=== PATIENT | female | born 1940 | race Caucasian/White ===

== ENCOUNTER 2024-02-05 17:48 | Inpatient (IN) ==
[2024-02-05 19:13] LABS: Basophils # (auto) 0.02 K/uL (0.00-0.20); Basophils % (auto) 0.3 %; Eosinophils # (auto) 0.05 K/uL (0.00-0.50); Eosinophils % (auto) 0.9 %; Hematocrit (blood only) 41.6 % (37.0-47.0); Hemoglobin 13.4 g/dl (12.0-16.0); Immature Granulocytes # (auto) 0.01 K/uL (0.01-0.20); Immature Granulocytes % (auto) 0.2 %; Mean Corpuscular Hemoglobin 30.7 pg (25.0-34.0); Mean Corpuscular Hgb Conc 32.2 g/dL (32.0-36.0); Mean Corpuscular Volume 95.4 fL (80.0-100.0); Mean Platelet Volume 8.7 fL (9.4-12.4); Monocytes # (auto) 0.32 K/uL (0.11-0.59); Monocytes % (auto) 5.5 %; Neutrophils # (auto) 4.29 K/uL (1.40-6.50); Neutrophils % (auto) 74.1 %; Platelet Count 286 K/uL (130-400); RDW Coefficient of Variation 12.4 % (11.5-14.5); RDW Standard Deviation 43.7 fL (36.4-46.3); Red Blood Count 4.36 M/uL (4.20-5.40); White Blood Count 5.79 K/ul (4.8-10.8)
[2024-02-05 19:30] LABS: Albumin Globulin Ratio 1.7 (0.9-2); Albumin Level 4.7 gm/dl (3.4-5.0); BUN Creatinine Ratio 22.4 (10-20); Bilirubin,Total 0.5 mg/dl (0.2-1.0); Calcium 9.5 mg/dl (8.6-10.3); Globulin 2.7 gm/dl (2.5-4.0); Total Protein 7.4 gm/dl (6.0-8.3)
[2024-02-05 19:37] LABS: Troponin I High Sensitivity 5.3 pg/ml (0-14)
[2024-02-05 19:40] LABS: INR 0.9 (0.9-1.1); Partial Thromboplastin Time 26 Seconds (21-31); Prothrombin Time 9.8 Seconds (9.0-12.0)
--- NOTE | 2024-02-05 21:23 | Emergency Department Note ---
Impression & Plan Dizziness, Hypertensive crisis, Pulmonary embolism, H/O pneumonectomy, Fall ED Provider Note CHIEF COMPLAINT: Fall HISTORY OF PRESENTING ILLNESS: This 83-year-old female patient presents to the emergency department with her son and [id number] for evaluation after a fall. The patient apparently lost her balance and fell against the wall on her right side a couple days ago. The patient's family states that she has been feeling lightheaded and dizzy recently which they believe caused the fall. She hit her head on the wall as well per family. Denies loss of consciousness. Denies blood thinner use. She has pain in the right upper arm. Denies chest pain or shortness of breath. Denies abdominal pain, nausea, and vomiting. The patient saw her PCP today and her PCP and the patient's family would like imaging performed. REVIEW OF SYSTEMS: See HPI for pertinent positives and pertinent negatives. ALLERGIES: NKDA MEDICATIONS: escitalopram 5 mg QD PAST MEDICAL HISTORY: Anxiety, Right lung removed at 20 y/o due to a cyst PHYSICAL EXAM: VITALS: Vitals are noted on the nurse's note and reviewed by myself. GENERAL: No acute distress, non-diaphoretic. SKIN: The skin was without obvious lacerations or abrasions. Capillary reflex less than 2 seconds. HEAD: Normocephalic. No scalp tenderness or step-offs felt. EARS: Bilateral external auditory canals clear without tragus tenderness. Bilateral tympanic membranes pearly ortiz without erythema or effusion. No mastoid tenderness bilaterally. No hemotympanum. No tyler sign. EYES: Pupils equal round and reactive to light and accommodation. Conjunctivae without injection, sclerae without icterus. Extraocular movements intact. No nystagmus. NOSE: Patent without discharge. No sinus tenderness. No septal hematoma or bleeding. FACE: No facial bone tenderness. Full range of motion of the jaw without tenderness. MOUTH: Mucous membranes moist. Pharynx without erythema or exudate. Uvula midline. Airway patent. Tongue does not deviate. NECK: Supple without nuchal rigidity. Cervical spine is nontender. Full range of motion of the neck without tenderness. HEART: Regular rate and rhythm without murmurs gallops or rubs. LUNGS: Clear to auscultation bilaterally with slight change in breath sounds on the right side compared to the left secondary to her surgery. No retractions or accessory muscle use. CHEST: No chest wall tenderness. ABDOMEN: Positive bowel sounds x 4. Normal tympanic percussion. Soft, nontender, without masses or organomegaly. No guarding or rebound tenderness. MUSCULOSKELETAL: No tenderness of the thoracic or lumbar spine. No tenderness with pelvic rocking. The patient is tender to palpation of the right mid humerus. Full range of motion without tenderness to palpation in all remaining extremities. Peripheral pulses 2+. NEURO: The patient seems slightly confused at baseline as she will repeat the same questions and sometimes repeats the same stories. However, the patient is oriented to person, place, and time. Normal sensation to light and sharp touch. DIFFERENTIAL DIAGNOSIS: Differential diagnosis includes concussion, contusion, fracture, subluxation, dislocation, subdural hematoma, epidural hematoma, intraparenchymal hemorrhage, contusion, ligamentous injury, neurovascular, compartment syndrome, rhabdomyolysis, intra-abdominal injury, splenic rupture, hepatic rupture, rib fractures, cardiac contusion, pneumothorax, hemothorax, cardiac tamponade, intrathoracic injury, neurologic, benign positional vertigo, dehydration, hypovolemia, anemia, tumor, infection, hypoglycemia, electrolyte abnormalities, cardiac sources, intracerebral event, toxicologic, neurologic, as well as other pathologies. ED COURSE AND MEDICAL DECISION MAKING: HISTORY FROM INDEPENDENT HISTORIAN: Additional history obtained for the patient's son and [id number]. MEDICATIONS GIVEN: 500 mL normal saline solution bolus. Hydralazine 5 mg IV. MONITOR: Continuous front desk monitor: Order was placed for continuous front desk monitor. Patient was placed on the front desk monitor and continuous pulse ox. Patient was noted to be in normal sinus rhythm at an initial rate of 94 bpm per my interpretation. EKG: EKG was interpreted by myself as sinus tachycardia at [address] or T wave changes. INTERPRETATION OF LABS: I interpreted the labs with full lab results as below in the lab section of this note. Pertinent lab results discussed in the MDM section below. INTERPRETATION OF IMAGING: Chest x-ray was interpreted by myself as positive for changes consistent with her previous lung surgery. X-rays of the right humerus were interpreted by myself as negative for acute fracture or dislocation. Radiology report is still pending. Additional imaging studies were interpreted by myself and read by radiology as per the imaging section of this note. CT scans of the head and cervical spine without contrast were negative for acute intracranial abnormality, fracture, or subluxation. There is cervical spondylosis with varying degrees of central canal and foraminal stenosis. CTA of the head and neck with IV contrast was negative for acute abnormalities. CT scans of the chest with IV contrast showed a right lower lobe pulmonary embolus with a small right pleural effusion. There is elevation of the right hemidiaphragm with right sided volume loss that appears consistent with a prior pneumonectomy. CT scan of the abdomen pelvis with IV contrast showed no acute findings in the abdomen or pelvis. CHRONIC MEDICAL/SOCIAL CONDITIONS AFFECTING CARE: History of previous pneumonectomy CONSULTATIONS: On-call hospitalist MDM SUMMARY: The patient was seen during a time of extreme volume and extreme acuity. Nursing triage protocols were initiated with IV lock, labs, and/or imaging studies conducted by protocol in the triage area. The patient was examined by myself once they were taken back to an exam room. The patient has had a lot of dizziness recently and her family believe that the dizziness caused her to fall 2 days ago. The patient fell hitting the right side of her body and hitting her head. She is not on blood thinners. The patient does have some mild confusion and repetitive questioning on exam, but the family is unsure if this is baseline or little worse than baseline. The patient saw her PCP today who was concerned about her symptoms and referred her to the ER. The patient declined any medication for pain while in the emergency department. She was given 500 mL normal saline solution bolus. White blood cell count normal at 5.79. Hemoglobin normal at 13.4. Platelet count normal at 286. Coags were normal. CMP without significant abnormalities. Magnesium normal. TSH normal. High-sensitivity troponin normal. Urinalysis normal. Chest x-ray was interpreted by myself as positive for changes consistent with her previous lung surgery. X-rays of the right humerus were interpreted by myself as negative for acute fracture or dislocation. Radiology report is still pending. Additional imaging studies were interpreted by myself and read by radiology as per the imaging section of this note. CT scans of the head and cervical spine without contrast were negative for acute intracranial abnormality, fracture, or subluxation. There is cervical spondylosis with varying degrees of central canal and foraminal stenosis. CTA of the head and neck with IV contrast was negative for acute abnormalities. CT scans of the chest with IV contrast showed a right lower lobe pulmonary embolus with a small right pleural effusion. There is elevation of the right hemidiaphragm with right sided volume loss that appears consistent with a prior pneumonectomy. CT scan of the abdomen pelvis with IV contrast showed no acute findings in the abdomen or pelvis. The patient's blood pressure is elevated in the ER. The patient is not currently on any blood pressure medications. She was given hydralazine 5 mg IV for improvement of her blood pressure. CTA of the chest with IV contrast showed concerns for a right lower lobe PE. The patient thinks she may have had a blood clot at the time of her lung resection, but is not sure. I had a meaningful discussion about this patient with Dr. Clancy who agrees with my assessment and the treatment plan. We deferred decision on anticoagulation management to the admitting team as the patient is not symptomatic at this time other than the dizziness. I spoke with the on-call hospitalist who agreed to admit the patient for further evaluation and treatment. Please refer to their dictation for further details. The patient's care was transferred in stable condition. DIAGNOSIS: Dizziness PE with history of pneumonectomy Fall Hypertension Past Med/Surg History Problem List (Updated 02/06/24 @ 05:36 by Marilyn Baker PA-C) Fall (Acute) H/O pneumonectomy (Acute) Pulmonary embolism (Acute) Dizziness (Acute) Hypertensive crisis (Acute) Social History Smoking Status: Never smoker Second Hand Exposure: No; Do You Dip or Chew Tobacco: No; Tobacco Cessation Education Requested by Patient: No Hx Alcohol Use: No Hx Substance Use: No Preferred Language: Serbian Communication Ability: Effective Lactation Coordinator Required: No Beliefs That Will Affect Care: None Current Living Situation: Alone Other Information That Helps Us Care for You: No Feels Safe at Home: Yes Safety Concerns: Feels Safe At This Time Assistive Devices: None Allergies Allergies Allergy/AdvReac Type Severity Reaction Status Date / Time procaine Allergy Unknown . Verified 02/05/24 23:43 Home Meds Home Medications Medication Instructions Recorded Confirmed escitalopram oxalate 5 mg tablet 5 mg PO DAILY 02/05/24 02/05/24 Results & Data (ED) Vital Signs Vital Signs - 24 hr 02/05/24 18:10 02/05/24 20:23 02/05/24 20:24 Temperature 36.5 C Temperature Source Temporal Artery Scan Pulse Rate 98 H 103 H Pulse Rate [Finger] 103 H Pulse Rate from SpO2 Sensor Respiratory Rate 20 20 Respiratory Effort / Characteristics Non-Labored Spontaneous Respiratory Depth Normal Blood Pressure 168/85 H Blood Pressure [Right Arm] 192/101 H Blood Pressure Mean 112 Blood Pressure Mean [Right Arm] 131 Pulse Oximetry 93 97 Oxygen Delivery Method Room Air Room Air Sepsis Recent Fever Within 48 Hours No Sepsis New/Unexplained Change in Mental Status N/A Sepsis Action Taken by Nursing No Action Required 02/05/24 20:30 02/05/24 21:30 02/05/24 21:36 Temperature Temperature Source Pulse Rate 78 99 H Pulse Rate [Finger] Pulse Rate from SpO2 Sensor 99 H Respiratory Rate 20 20 Respiratory Effort / Characteristics Respiratory Depth Blood Pressure 183/93 H 180/119 H Blood Pressure [Right Arm] Blood Pressure Mean 124 147 Blood Pressure Mean [Right Arm] Pulse Oximetry 97 98 Oxygen Delivery Method Sepsis Recent Fever Within 48 Hours Sepsis New/Unexplained Change in Mental Status Sepsis Action Taken by Nursing 02/05/24 22:21 02/05/24 22:30 02/05/24 22:45 Temperature Temperature Source Pulse Rate 93 H 84 Pulse Rate [Finger] Pulse Rate from SpO2 Sensor 83 Respiratory Rate 18 18 15 Respiratory Effort / Characteristics Respiratory Depth Blood Pressure Blood Pressure [Right Arm] Blood Pressure Mean Blood Pressure Mean [Right Arm] Pulse Oximetry 97 97 Oxygen Delivery Method Sepsis Recent Fever Within 48 Hours Sepsis New/Unexplained Change in Mental Status Sepsis Action Taken by Nursing 02/05/24 22:54 02/05/24 23:00 02/05/24 23:01 Temperature Temperature Source Pulse Rate 84 Pulse Rate [Finger] Pulse Rate from SpO2 Sensor Respiratory Rate 23 24 Respiratory Effort / Characteristics Respiratory Depth Blood Pressure 205/115 H Blood Pressure [Right Arm] Blood Pressure Mean 167 Blood Pressure Mean [Right Arm] Pulse Oximetry 95 97 Oxygen Delivery Method Sepsis Recent Fever Within 48 Hours Sepsis New/Unexplained Change in Mental Status Sepsis Action Taken by Nursing 02/05/24 23:01 02/05/24 23:30 Temperature Temperature Source Pulse Rate 92 H Pulse Rate [Finger] Pulse Rate from SpO2 Sensor Respiratory Rate 18 Respiratory Effort / Characteristics Respiratory Depth Blood Pressure 205/115 H 181/93 H Blood Pressure [Right Arm] Blood Pressure Mean 167 147 Blood Pressure Mean [Right Arm] Pulse Oximetry 96 Oxygen Delivery Method Sepsis Recent Fever Within 48 Hours Sepsis New/Unexplained Change in Mental Status Sepsis Action Taken by Nursing Laboratory Data 02/05/24 18:50 02/05/24 18:50 Lab Results 02/05/24 02/05/24 Range/Units 18:50 22:15 WBC 5.79 (4.8-10.8) K/ul RBC 4.36 (4.20-5.40) M/uL Hgb 13.4 (12.0-16.0) g/dl Hct 41.6 (37.0-47.0) % MCV 95.4 (80.0-100.0) fL MCH 30.7 (25.0-34.0) pg MCHC 32.2 (32.0-36.0) g/dL RDW Std Deviation 43.7 (36.4-46.3) fL RDW Coeff of Oksana 12.4 (11.5-14.5) % Plt Count 286 (130-400) K/uL MPV 8.7 L (9.4-12.4) fL Immature Gran % (Auto) 0.2 % Neut % (Auto) 74.1 % Lymph % (Auto) 19.0 % Bell % (Auto) 5.5 % Eos % (Auto) 0.9 % Baso % (Auto) 0.3 % Neut # (Auto) 4.29 (1.40-6.50) K/uL Lymph # (Auto) 1.10 L (1.20-3.40) K/uL Bell # (Auto) 0.32 (0.11-0.59) K/uL Eos # (Auto) 0.05 (0.00-0.50) K/uL Baso # (Auto) 0.02 (0.00-0.20) K/uL Immature Gran # (Auto) 0.01 (0.01-0.20) K/uL PT 9.8 (9.0-12.0) Seconds INR 0.9 (0.9-1.1) APTT 26 (21-31) Seconds PTT Ratio 1.0 Sodium 136 (136-145) mmol/L Potassium 4.0 (3.5-5.1) mmol/L Chloride 100 (98-107) mmol/L Carbon Dioxide 29 (21-32) mmol/L Anion Gap 7 (3-11) BUN 19 (6-23) mg/dl Creatinine 0.85 (0.6-1.2) mg/dl Est Cr Clr Drug Dosing 36.0 ml/min eGFR 67.94 BUN/Creatinine Ratio 22.4 H (10-20) Glucose 92 (70-99(Fasting)) mg/dl Calcium 9.5 (8.6-10.3) mg/dl Magnesium 2.3 (1.7-2.4) mg/dl Total Bilirubin 0.5 (0.2-1.0) mg/dl AST 25 (13-39) U/L ALT 20 (7-52) U/L Alkaline Phosphatase 65 (34-104) U/L Troponin I High Sens 5.3 (0-14) pg/ml Total Protein 7.4 (6.0-8.3) gm/dl Albumin 4.7 (3.4-5.0) gm/dl Globulin 2.7 (2.5-4.0) gm/dl Albumin/Globulin Ratio 1.7 (0.9-2) TSH 1.803 (0.300-4.500) uIu/ml Urine Color Yellow Urine Appearance Clear (Clear) Urine pH 7.5 (4.5-7.5) Ur Specific Firestone 1.013 (1.000-1.030) Urine Protein Negative (Negative) Urine Glucose (UA) Negative (Negative) Urine Ketones Negative (Negative) Urine Blood Negative (Negative) Urine Nitrite Negative (Negative) Urine Bilirubin Negative (Negative) Urine Urobilinogen Negative (Negative) Ur Leukocyte Esterase Negative (Negative) Administered Medications Hydroxyzine HCl (Hydroxyzine Hcl 10 Mg Tab) 10 mg PO QID PRN PRN Reason: Anxiety Stop: 03/07/24 00:44 Last Admin: 02/06/24 03:02 Dose: 10 mg Documented By: JAMEL Heparin Sodium/Dextrose (Heparin Sodium/Dextrose) 25,000 units in 500 mls @ 11 mls/hr IV .Q24H [facility]; Protocol Stop: 03/07/24 00:59 Last Admin: 02/06/24 01:45 Dose: 550 units/hr, 11 mls/hr Documented By: JAMEL Co-signed By: AUREA Sodium Chloride (Nss) 1,000 mls @ 50 mls/hr IV .Q20H ONE Stop: 02/06/24 20:45 Last Admin: 02/06/24 01:19 Dose: 50 mls/hr Documented By: JAMEL Discontinued Medications Acetaminophen (Acetaminophen 325 Mg Tab) 650 mg PO NOW STA Stop: 10/05/24 00:32 Last Admin: 02/06/24 01:13 Dose: 650 mg Documented By: JAMEL Heparin Sodium/Dextrose (Heparin Iv Adult Wt-Based Low-Dose *No* Initial Bolus Protocol) 1 each IV ONE STA; Protocol Stop: 02/06/24 00:44 Last Admin: 02/06/24 01:19 Dose: Not Given Documented By: JAMEL Heparin Sodium/Dextrose (Heparin 13534 Unit/500 Ml D5w) Confirm Administered Dose 25,000 units IV .STK-MED ONE Stop: 02/06/24 01:12 Last Admin: 02/06/24 02:22 Dose: Not Given Documented By: JAMEL Hydralazine HCl (Hydralazine Hcl 20 Mg/Ml Vial) 5 mg IV NOW ONE Stop: 02/05/24 23:33 Last Admin: 02/06/24 00:00 Dose: 5 mg Documented By: NELL Sodium Chloride (Nss) 500 mls @ 999 mls/hr IV .Q31M ONE Stop: 02/05/24 22:10 Last Infusion: 02/05/24 23:12 Dose: Infused Documented By: Admin: 02/05/24 21:46 Dose: 999 mls/hr Documented By: NELL Ioversol (Optiray 320 125ml) 119 ml IV ONCE ONE Stop: 02/05/24 22:04 Last Admin: 02/05/24 22:03 Dose: 119 ml Documented By: ABEL Lisinopril (Lisinopril 2.5 Mg Tab) 2.5 mg PO NOW STA Stop: 02/05/24 23:54 Last Admin: 02/06/24 00:34 Dose: 2.5 mg Documented By: NELL Imaging Data Radiologist's Impression: Abdomen/Pelvis CT 02/05/24 21:40 Exam(s): CT ABDOMEN + PELVIS With Contrast IV Amt: 118ml opti 320 EXAM: CT Abdomen and Pelvis With Intravenous Contrast CLINICAL HISTORY: Reason for exam: Dizziness, Trauma. TECHNIQUE: Axial computed tomography images of the abdomen and pelvis with intravenous contrast. CTDI is 52.64 mGy and DLP is 1338.64 mGy-cm. Automated exposure control was utilized for the study. A dose lowering technique was utilized adhering to the principles of ALARA. CONTRAST: Patient received 118ml opti 320 of IV contrast COMPARISON: No relevant prior studies available. FINDINGS: Lung bases: Unremarkable. No mass. No consolidation. ABDOMEN: Liver: Innumerable subcentimeter hypodensities within the liver too small for further tissue characterization but likely representing cysts. Gallbladder and bile ducts: Unremarkable. No calcified stones. No ductal dilation. Pancreas: Unremarkable. No mass. No ductal dilation. Spleen: Unremarkable. No splenomegaly. Adrenals: Unremarkable. No mass. Kidneys and ureters: 1.4 cm left upper pole renal hypodensity likely representing cyst. No hydronephrosis. Stomach and bowel: Moderate amount of stool within the rectum. No obstruction. No mucosal thickening. PELVIS: Appendix: No findings to suggest acute appendicitis. Bladder: Unremarkable. No mass. Reproductive: Unremarkable as visualized. ABDOMEN and PELVIS: Intraperitoneal space: Unremarkable. No free air. No significant fluid collection. Bones/joints: Multilevel degenerative changes of the lower thoracic and lumbar spine. No acute fracture. No dislocation. Soft tissues: Unremarkable. Vasculature: Unremarkable. No abdominal aortic aneurysm. Lymph nodes: Unremarkable. No enlarged lymph nodes. IMPRESSION: No acute findings in the abdomen or pelvis. Electronically signed by: Filippo Guerrero MD 02/05/24 23:[address] 02/05/24 21:40 Exam(s): CT C SPINE EXAM: CT Cervical Spine Without Intravenous Contrast CLINICAL HISTORY: Reason for exam: Trauma. TECHNIQUE: Axial computed tomography images of the cervical spine without intravenous contrast. CTDI is 20.41 mGy and DLP is 359.91 mGy-cm. Automated exposure control was utilized for the study. A dose lowering technique was utilized adhering to the principles of ALARA. COMPARISON: None FINDINGS: No fracture or subluxations are noted. The vertebral body heights and alignment are preserved. No prevertebral soft tissue swelling. Note is made of multilevel cervical spondylosis with varying degrees of central canal and foramina stenoses. IMPRESSION: 1. No cervical fractures. 2. Cervical spondylosis with varying degrees of central canal and foramina stenoses. Electronically signed by: Filippo Guerrero MD 02/05/24 22:[address] 02/05/24 21:40 CR Exam(s): CT CHEST With Contrast IV Amt: 119ml optiray 320 EXAM: CT Chest With Intravenous Contrast CLINICAL HISTORY: Reason for exam: Dizziness, SOB, fall. TECHNIQUE: Axial computed tomography images of the chest with intravenous contrast. CTDI is 52.64 mGy and DLP is 1338.68 mGy-cm. Automated exposure control was utilized for the study. A dose lowering technique was utilized adhering to the principles of ALARA. CONTRAST: Patient received 119ml optiray 320 of IV contrast COMPARISON: No relevant prior studies available. FINDINGS: Lungs: Mild groundglass opacity scattered throughout the right lung. Left lung is clear. Right lower lobe pulmonary embolus. Pleural space: Small right pleural effusion. No pneumothorax. Heart: Unremarkable. No cardiomegaly. No significant pericardial effusion. No significant coronary artery calcifications. Bones/joints: Remote right healed fifth rib fracture. Multiple hypodensities within the liver and kidneys likely represent cysts. No dislocation. Soft tissues: Unremarkable. Vasculature: Unremarkable. No thoracic aortic aneurysm. Lymph nodes: Unremarkable. No enlarged lymph nodes. Upper abdomen: Elevation of the right hemidiaphragm. IMPRESSION: Small right pleural effusion. Right lower lobe pulmonary embolus Elevation right hemidiaphragm with right-sided volume loss. Correlate clinically for prior pneumonectomy. Communications: Call Doctor Pulmonary Embolism Electronically signed by: Filippo Guerrero MD 02/05/24 23:[address] 02/05/24 21:40 Exam(s): CT HEAD Without Contrast EXAM: CT Head Without Intravenous Contrast CLINICAL HISTORY: Reason for exam: Trauma. TECHNIQUE: Axial computed tomography images of the head/brain without intravenous contrast. CTDI is 37.72 mGy and DLP is 624.41 mGy-cm. Automated exposure control was utilized for the study. A dose lowering technique was utilized adhering to the principles of ALARA. COMPARISON: No relevant prior studies available. FINDINGS: Brain: Moderate ischemic microangiopathy. Age appropriate cerebral volume loss. No hemorrhage. Ventricles: Unremarkable. No ventriculomegaly. Bones/joints: Unremarkable. No acute fracture. Soft tissues: Subtle subcutaneous soft tissue emphysema involving the right-sided extracalvarial soft tissues. Sinuses: Unremarkable as visualized. No acute sinusitis. Mastoid air cells: Unremarkable as visualized. No mastoid effusion. IMPRESSION: No acute findings in the head/brain. Electronically signed by: Filippo Guerrero MD 02/05/24 22:45 PM Head CTA 02/05/24 21:40 Exam(s): CTA HEAD With Contrast IV Amt: 118ml opti 320 EXAM: CT Angiography Head With Intravenous Contrast CLINICAL HISTORY: Reason for exam: Dizziness, change in mental status. TECHNIQUE: Axial computed tomographic angiography images of the head with intravenous contrast. CTDI is 52.64 mGy and DLP is 1338.68 mGy-cm. Automated exposure control was utilized for the study. A dose lowering technique was utilized adhering to the principles of ALARA. MIP reconstructed images were created and reviewed. CONTRAST: Patient received 118ml opti 320 of IV contrast COMPARISON: No relevant prior studies available. FINDINGS: Right internal carotid artery: No acute findings. Intracranial segment is patent with no significant stenosis. No aneurysm. Right anterior cerebral artery: Unremarkable. No occlusion or significant stenosis. No aneurysm. Right middle cerebral artery: Unremarkable. No occlusion or significant stenosis. No aneurysm. Right posterior cerebral artery: Unremarkable. No occlusion or significant stenosis. No aneurysm. Right vertebral artery: Unremarkable as visualized. Left internal carotid artery: No acute findings. Intracranial segment is patent with no significant stenosis. No aneurysm. Left anterior cerebral artery: Unremarkable. No occlusion or significant stenosis. No aneurysm. Left middle cerebral artery: Unremarkable. No occlusion or significant stenosis. No aneurysm. Left posterior cerebral artery: Unremarkable. No occlusion or significant stenosis. No aneurysm. Left vertebral artery: Unremarkable as visualized. Basilar artery: Unremarkable. No occlusion or significant stenosis. No aneurysm. IMPRESSION: Normal head CTA. Electronically signed by: Filippo Guerrero MD 02/05/24 23:30 PM Neck CTA 02/05/24 21:40 Exam(s): CTA NECK With Contrast IV Amt: 118 cc opti 320 EXAM: CT Angiography Neck With Intravenous Contrast CLINICAL HISTORY: Reason for exam: Dizziness, change in mental status. TECHNIQUE: Routine carotid CT angiography protocol was performed with intravenous contrast. NASCET criteria using the distal ICAs for comparison were used for evaluation of stenoses. CTDI is 52.64 mGy and DLP is 1338.68 mGy-cm. Automated exposure control was utilized for the study. A dose lowering technique was utilized adhering to the principles of ALARA. MIP reconstructed images were created and reviewed. CONTRAST: Patient received 118 cc opti 320 of IV contrast COMPARISON: None. FINDINGS: VASCULATURE: Right common carotid artery: Unremarkable. No occlusion or significant stenosis. No dissection. Right internal carotid artery: Unremarkable. Extracranial segment is patent with no occlusion or significant stenosis. No dissection. Right external carotid artery: Unremarkable. No occlusion. Right vertebral artery: Unremarkable. No occlusion or significant stenosis. No dissection. Left common carotid artery: Unremarkable. No occlusion or significant stenosis. No dissection. Left internal carotid artery: Unremarkable. Extracranial segment is patent with no occlusion or significant stenosis. No dissection. Left external carotid artery: Unremarkable. No occlusion. Left vertebral artery: Unremarkable. No occlusion or significant stenosis. No dissection. NECK: Bones/joints: Unremarkable. No acute fracture. Soft tissues: Unremarkable. Lung apices: Clear. CAROTID STENOSIS REFERENCE USING NASCET CRITERIA: % ICA stenosis = (1 - narrowest ICA diameter/diameter of distal cervical ICA) x 100. Mild - <50% stenosis. Moderate - 50-69% stenosis. Severe - 70-94% stenosis. Near occlusion - 95-99% stenosis. Occluded - 100% stenosis. IMPRESSION: Negative CTA neck. Electronically signed by: Filippo Guerrero MD 02/05/24 22:54 PM Discharge Plan Visit Data Chief Complaint: Referred by Doctor Stated Complaint: REQUEST FOR SCANS AND BLOODWORK ED Provider: Pauly Clancy ED Midlevel Provider: Marilyn Baker. Discharge Problem: Dizziness, Hypertensive crisis, Pulmonary embolism, H/O pneumonectomy, Fall Patient Disposition: Admitted As Inpatient Condition: Good Discharge Instructions Interventions: ED Discharge Assessment Last Done: 02/06/24 00:36 Discharge Problem: Pulmonary embolism Qualifiers: Pulmonary embolism type: unspecified Chronicity: unspecified Acute cor pulmonale presence: unspecified Qualified Code(s): I26.99 - Other pulmonary embolism without acute cor pulmonale Fall Qualifiers: Encounter type: initial encounter Qualified Code(s): W19.XXXA - Unspecified fall, initial encounter
[2024-02-05] MEDS: SODIUM CHLORIDE 0.9% 500 ML IV ONE (21:46)
[2024-02-05] MEDS: OPTIRAY 320 125ml IV ONE (22:03)
[2024-02-05 22:20] LABS: Magnesium 2.3 mg/dl (1.7-2.4)
--- NOTE | 2024-02-05 22:37 | CT Scan Report ---
Exam(s): CT C SPINE EXAM: CT Cervical Spine Without Intravenous Contrast CLINICAL HISTORY: Reason for exam: Trauma. TECHNIQUE: Axial computed tomography images of the cervical spine without intravenous contrast. CTDI is 20.41 mGy and DLP is 359.91 mGy-cm. Automated exposure control was utilized for the study. A dose lowering technique was utilized adhering to the principles of ALARA. COMPARISON: None FINDINGS: No fracture or subluxations are noted. The vertebral body heights and alignment are preserved. No prevertebral soft tissue swelling. Note is made of multilevel cervical spondylosis with varying degrees of central canal and foramina stenoses. IMPRESSION: 1. No cervical fractures. 2. Cervical spondylosis with varying degrees of central canal and foramina stenoses. Electronically signed by: Filippo Guerrero MD 02/05/24 22:36 PM
[2024-02-05 22:42] LABS: Appearance Urine Clear (Clear); Bilirubin Urine Negative (Negative); Blood Urine Negative (Negative); Color Urine Yellow; Glucose Urine UA Negative (Negative); Ketones Urine Negative (Negative); Leukocyte Esterase Urine Negative (Negative); Nitrite Urine Negative (Negative); Protein Urine Negative (Negative); Specific Gravity Urine 1.013 (1.000-1.030); Urobilinogen Urine Negative (Negative); pH Urine 7.5 (4.5-7.5)
--- NOTE | 2024-02-05 22:46 | CT Scan Report ---
Exam(s): CT HEAD Without Contrast EXAM: CT Head Without Intravenous Contrast CLINICAL HISTORY: Reason for exam: Trauma. TECHNIQUE: Axial computed tomography images of the head/brain without intravenous contrast. CTDI is 37.72 mGy and DLP is 624.41 mGy-cm. Automated exposure control was utilized for the study. A dose lowering technique was utilized adhering to the principles of ALARA. COMPARISON: No relevant prior studies available. FINDINGS: Brain: Moderate ischemic microangiopathy. Age appropriate cerebral volume loss. No hemorrhage. Ventricles: Unremarkable. No ventriculomegaly. Bones/joints: Unremarkable. No acute fracture. Soft tissues: Subtle subcutaneous soft tissue emphysema involving the right-sided extracalvarial soft tissues. Sinuses: Unremarkable as visualized. No acute sinusitis. Mastoid air cells: Unremarkable as visualized. No mastoid effusion. IMPRESSION: No acute findings in the head/brain. Electronically signed by: Filippo Guerrero MD 02/05/24 22:45 PM
--- NOTE | 2024-02-05 22:54 | CT Scan Report ---
Exam(s): CTA NECK With Contrast IV Amt: 118 cc opti 320 EXAM: CT Angiography Neck With Intravenous Contrast CLINICAL HISTORY: Reason for exam: Dizziness, change in mental status. TECHNIQUE: Routine carotid CT angiography protocol was performed with intravenous contrast. NASCET criteria using the distal ICAs for comparison were used for evaluation of stenoses. CTDI is 52.64 mGy and DLP is 1338.68 mGy-cm. Automated exposure control was utilized for the study. A dose lowering technique was utilized adhering to the principles of ALARA. MIP reconstructed images were created and reviewed. CONTRAST: Patient received 118 cc opti 320 of IV contrast COMPARISON: None. FINDINGS: VASCULATURE: Right common carotid artery: Unremarkable. No occlusion or significant stenosis. No dissection. Right internal carotid artery: Unremarkable. Extracranial segment is patent with no occlusion or significant stenosis. No dissection. Right external carotid artery: Unremarkable. No occlusion. Right vertebral artery: Unremarkable. No occlusion or significant stenosis. No dissection. Left common carotid artery: Unremarkable. No occlusion or significant stenosis. No dissection. Left internal carotid artery: Unremarkable. Extracranial segment is patent with no occlusion or significant stenosis. No dissection. Left external carotid artery: Unremarkable. No occlusion. Left vertebral artery: Unremarkable. No occlusion or significant stenosis. No dissection. NECK: Bones/joints: Unremarkable. No acute fracture. Soft tissues: Unremarkable. Lung apices: Clear. CAROTID STENOSIS REFERENCE USING NASCET CRITERIA: % ICA stenosis = (1 - narrowest ICA diameter/diameter of distal cervical ICA) x 100. Mild - <50% stenosis. Moderate - 50-69% stenosis. Severe - 70-94% stenosis. Near occlusion - 95-99% stenosis. Occluded - 100% stenosis. IMPRESSION: Negative CTA neck. Electronically signed by: Filippo Guerrero MD 02/05/24 22:54 PM
--- NOTE | 2024-02-05 23:21 | CT Scan Report ---
Exam(s): CT CHEST With Contrast IV Amt: 119ml optiray 320 EXAM: CT Chest With Intravenous Contrast CLINICAL HISTORY: Reason for exam: Dizziness, SOB, fall. TECHNIQUE: Axial computed tomography images of the chest with intravenous contrast. CTDI is 52.64 mGy and DLP is 1338.68 mGy-cm. Automated exposure control was utilized for the study. A dose lowering technique was utilized adhering to the principles of ALARA. CONTRAST: Patient received 119ml optiray 320 of IV contrast COMPARISON: No relevant prior studies available. FINDINGS: Lungs: Mild groundglass opacity scattered throughout the right lung. Left lung is clear. Right lower lobe pulmonary embolus. Pleural space: Small right pleural effusion. No pneumothorax. Heart: Unremarkable. No cardiomegaly. No significant pericardial effusion. No significant coronary artery calcifications. Bones/joints: Remote right healed fifth rib fracture. Multiple hypodensities within the liver and kidneys likely represent cysts. No dislocation. Soft tissues: Unremarkable. Vasculature: Unremarkable. No thoracic aortic aneurysm. Lymph nodes: Unremarkable. No enlarged lymph nodes. Upper abdomen: Elevation of the right hemidiaphragm. IMPRESSION: Small right pleural effusion. Right lower lobe pulmonary embolus Elevation right hemidiaphragm with right-sided volume loss. Correlate clinically for prior pneumonectomy. Communications: Call Doctor Pulmonary Embolism Electronically signed by: Filippo Guerrero MD 02/05/24 23:20 PM
--- NOTE | 2024-02-05 23:23 | CT Scan Report ---
Exam(s): CT ABDOMEN + PELVIS With Contrast IV Amt: 118ml opti 320 EXAM: CT Abdomen and Pelvis With Intravenous Contrast CLINICAL HISTORY: Reason for exam: Dizziness, Trauma. TECHNIQUE: Axial computed tomography images of the abdomen and pelvis with intravenous contrast. CTDI is 52.64 mGy and DLP is 1338.64 mGy-cm. Automated exposure control was utilized for the study. A dose lowering technique was utilized adhering to the principles of ALARA. CONTRAST: Patient received 118ml opti 320 of IV contrast COMPARISON: No relevant prior studies available. FINDINGS: Lung bases: Unremarkable. No mass. No consolidation. ABDOMEN: Liver: Innumerable subcentimeter hypodensities within the liver too small for further tissue characterization but likely representing cysts. Gallbladder and bile ducts: Unremarkable. No calcified stones. No ductal dilation. Pancreas: Unremarkable. No mass. No ductal dilation. Spleen: Unremarkable. No splenomegaly. Adrenals: Unremarkable. No mass. Kidneys and ureters: 1.4 cm left upper pole renal hypodensity likely representing cyst. No hydronephrosis. Stomach and bowel: Moderate amount of stool within the rectum. No obstruction. No mucosal thickening. PELVIS: Appendix: No findings to suggest acute appendicitis. Bladder: Unremarkable. No mass. Reproductive: Unremarkable as visualized. ABDOMEN and PELVIS: Intraperitoneal space: Unremarkable. No free air. No significant fluid collection. Bones/joints: Multilevel degenerative changes of the lower thoracic and lumbar spine. No acute fracture. No dislocation. Soft tissues: Unremarkable. Vasculature: Unremarkable. No abdominal aortic aneurysm. Lymph nodes: Unremarkable. No enlarged lymph nodes. IMPRESSION: No acute findings in the abdomen or pelvis. Electronically signed by: Filippo Guerrero MD 02/05/24 23:22 PM
--- NOTE | 2024-02-05 23:31 | CT Scan Report ---
Exam(s): CTA HEAD With Contrast IV Amt: 118ml opti 320 EXAM: CT Angiography Head With Intravenous Contrast CLINICAL HISTORY: Reason for exam: Dizziness, change in mental status. TECHNIQUE: Axial computed tomographic angiography images of the head with intravenous contrast. CTDI is 52.64 mGy and DLP is 1338.68 mGy-cm. Automated exposure control was utilized for the study. A dose lowering technique was utilized adhering to the principles of ALARA. MIP reconstructed images were created and reviewed. CONTRAST: Patient received 118ml opti 320 of IV contrast COMPARISON: No relevant prior studies available. FINDINGS: Right internal carotid artery: No acute findings. Intracranial segment is patent with no significant stenosis. No aneurysm. Right anterior cerebral artery: Unremarkable. No occlusion or significant stenosis. No aneurysm. Right middle cerebral artery: Unremarkable. No occlusion or significant stenosis. No aneurysm. Right posterior cerebral artery: Unremarkable. No occlusion or significant stenosis. No aneurysm. Right vertebral artery: Unremarkable as visualized. Left internal carotid artery: No acute findings. Intracranial segment is patent with no significant stenosis. No aneurysm. Left anterior cerebral artery: Unremarkable. No occlusion or significant stenosis. No aneurysm. Left middle cerebral artery: Unremarkable. No occlusion or significant stenosis. No aneurysm. Left posterior cerebral artery: Unremarkable. No occlusion or significant stenosis. No aneurysm. Left vertebral artery: Unremarkable as visualized. Basilar artery: Unremarkable. No occlusion or significant stenosis. No aneurysm. IMPRESSION: Normal head CTA. Electronically signed by: Filippo Guerrero MD 02/05/24 23:30 PM
--- NOTE | 2024-02-05 23:54 | History & Physical Report ---
Date of Service February 05, 2024 Assessment & Plan (1) Hypertensive crisis: Plan: History of medication noncompliance Patient stopped most of her medications as per outpatient PCP note from September 2023. History beta-consuelo Rx up until 2022 Acute PE Incidental finding on CT ? Recurrent episode Patient gives history of blood clot finding from lung surgery 60 years ago. Patient's son disputes history. Rule out hypercoagulability Rule out LE clot as source hyperlipidemia, not on statin Rx anxiety/borderline personality disorder, patient anxious during exam cognitive impairment, not new as per son. Admit to PCU Initiate lisinopril Hypercoag workup LE venous Dopplers rule out DVT Low-dose IV heparin for now given recent head trauma Repeat CT head [address] PT OT eval DVT prophylaxis. IV heparin Full code Patient's son requests for updates from providers. Mr. Vick Barajas, contact #[phone]. Text document was generated using [employer] voice recognition software. It may contain grammatical or spelling errors. Kindly contact undersigned for clarification of any documentation item in question. History of Present Illness Chief Complaint: Dizziness, fall Primary Care Provider: Molly Castelan PA-C History obtained from patient, family, and records. Medical history significant for hypertension, hyperlipidemia, GERD, anxiety/mood disorder, borderline personality disorder Patient not feeling well the last few days. Dizziness described as lightheadedness. Patient stumbled from imbalance the other day causing her to hit her head against a door. Mild right-sided chest pain without SOB symptoms. Patient felt like she was going to pass out. Denies cough symptoms. No leg swelling. Patient somewhat confused as per outpatient provider notes. Patient directed to ER for evaluation. Highest SBP of 200s documented at the ER. IV hydralazine administered at the ER. 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 Verified 02/05/24 23:43 Home Medications Medication Instructions Recorded Confirmed Type escitalopram oxalate 5 mg tablet 5 mg PO DAILY 02/05/24 02/05/24 History Past Med/Surg History Problem List (Updated 02/06/24 @ 02:02 by Pradeep Barbosa MD) Hypertensive crisis Social History Smoking Status: Never smoker Preferred Language: Filipino Feels Safe at Home: Yes Review of Systems Review of Systems: As per HPI, all other systems reviewed and negative Physical Exam Physical Exam: GENERAL: Oriented to year, pleasant, slightly anxious, looks younger than stated age, no respiratory distress SKIN: Normal color, warm HEENT: [place] palpebral conjunctivae, no ptosis, dry buccal mucosa NECK : Supple, no tenderness CHEST : CTA, no tenderness HEART : RRR, no obvious murmurs ABDOMEN: no distention, nontender EXTREMITIES : No LE swelling/tenderness, no other conspicuous deformities noted NEUROLOGIC : Oriented to year, no facial asymmetry, gait and stance not assessed Results & Data Results & Data Vital Signs (Past 12 Hours) Vital Signs Temp Pulse Pulse Resp BP BP Pulse Ox 02/05/24 23:01 205/115 H 02/05/24 23:01 84 205/115 H 02/05/24 23:00 24 97 02/05/24 22:54 23 95 02/05/24 22:45 15 97 02/05/24 22:30 84 18 97 02/05/24 22:21 93 H 18 02/05/24 21:36 99 H 20 98 02/05/24 21:30 180/119 H 02/05/24 20:30 78 20 183/93 H 97 02/05/24 20:24 103 H 02/05/24 20:23 103 H 20 192/101 H 97 02/05/24 18:10 36.5 C 98 H 20 168/85 H 93 O2 Del Method 02/05/24 23:01 02/05/24 23:01 02/05/24 23:00 02/05/24 22:54 02/05/24 22:45 02/05/24 22:30 02/05/24 22:21 02/05/24 21:36 02/05/24 21:30 02/05/24 20:30 02/05/24 20:24 02/05/24 20:23 Room Air 02/05/24 18:10 Room Air Laboratory Results Laboratory Results WBC 5.79 K/ul (4.8-10.8) 02/05/24 18:50 RBC 4.36 M/uL (4.20-5.40) 02/05/24 18:50 Hgb 13.4 g/dl (12.0-16.0) 02/05/24 18:50 Hct 41.6 % (37.0-47.0) 02/05/24 18:50 MCV 95.4 fL (80.0-100.0) 02/05/24 18:50 MCH 30.7 pg (25.0-34.0) 02/05/24 18:50 MCHC 32.2 g/dL (32.0-36.0) 02/05/24 18:50 RDW Std Deviation 43.7 fL (36.4-46.3) 02/05/24 18:50 RDW Coeff of Oksana 12.4 % (11.5-14.5) 02/05/24 18:50 Plt Count 286 K/uL (130-400) 02/05/24 18:50 MPV 8.7 fL (9.4-12.4) L 02/05/24 18:50 Immature Gran % (Auto) 0.2 % 02/05/24 18:50 Neut % (Auto) 74.1 % 02/05/24 18:50 Lymph % (Auto) 19.0 % 02/05/24 18:50 [place] % (Auto) 5.5 % 02/05/24 18:50 Eos % (Auto) 0.9 % 02/05/24 18:50 Baso % (Auto) 0.3 % 02/05/24 18:50 Neut # (Auto) 4.29 K/uL (1.40-6.50) 02/05/24 18:50 Lymph # (Auto) 1.10 K/uL (1.20-3.40) L 02/05/24 18:50 [place] # (Auto) 0.32 K/uL (0.11-0.59) 02/05/24 18:50 Eos # (Auto) 0.05 K/uL (0.00-0.50) 02/05/24 18:50 Baso # (Auto) 0.02 K/uL (0.00-0.20) 02/05/24 18:50 Immature Gran # (Auto) 0.01 K/uL (0.01-0.20) 02/05/24 18:50 PT 9.8 Seconds (9.0-12.0) 02/05/24 18:50 INR 0.9 (0.9-1.1) 02/05/24 18:50 APTT 26 Seconds (21-31) 02/05/24 18:50 PTT Ratio 1.0 02/05/24 18:50 Sodium 136 mmol/L (136-145) 02/05/24 18:50 Potassium 4.0 mmol/L (3.5-5.1) 02/05/24 18:50 Chloride 100 mmol/L (98-107) 02/05/24 18:50 Carbon Dioxide 29 mmol/L (21-32) 02/05/24 18:50 Anion Gap 7 (3-11) 02/05/24 18:50 BUN 19 mg/dl (6-23) 02/05/24 18:50 Creatinine 0.85 mg/dl (0.6-1.2) 02/05/24 18:50 Est Cr Clr Drug Dosing 36.0 ml/min 02/05/24 18:50 eGFR 67.94 02/05/24 18:50 BUN/Creatinine Ratio 22.4 (10-20) H 02/05/24 18:50 Glucose 92 mg/dl (70-99(Fasting)) 02/05/24 18:50 Calcium 9.5 mg/dl (8.6-10.3) 02/05/24 18:50 Magnesium 2.3 mg/dl (1.7-2.4) 02/05/24 18:50 Total Bilirubin 0.5 mg/dl (0.2-1.0) 02/05/24 18:50 AST 25 U/L (13-39) 02/05/24 18:50 ALT 20 U/L (7-52) 02/05/24 18:50 Alkaline Phosphatase 65 U/L (34-104) 02/05/24 18:50 Troponin I High Sens 5.3 pg/ml (0-14) 02/05/24 18:50 Total Protein 7.4 gm/dl (6.0-8.3) 02/05/24 18:50 Albumin 4.7 gm/dl (3.4-5.0) 02/05/24 18:50 Globulin 2.7 gm/dl (2.5-4.0) 02/05/24 18:50 Albumin/Globulin Ratio 1.7 (0.9-2) 02/05/24 18:50 Urine Color Yellow 02/05/24 22:15 Urine Appearance Clear (Clear) 02/05/24 22:15 Urine pH 7.5 (4.5-7.5) 02/05/24 22:15 Ur Specific [place] 1.013 (1.000-1.030) 02/05/24 22:15 Urine Protein Negative (Negative) 02/05/24 22:15 Urine Glucose (UA) Negative (Negative) 02/05/24 22:15 Urine Ketones Negative (Negative) 02/05/24 22:15 Urine Blood Negative (Negative) 02/05/24 22:15 Urine Nitrite Negative (Negative) 02/05/24 22:15 Urine Bilirubin Negative (Negative) 02/05/24 22:15 Urine Urobilinogen Negative (Negative) 02/05/24 22:15 Ur Leukocyte Esterase Negative (Negative) 02/05/24 22:15 Impressions Abdomen/Pelvis CT 02/05/24 21:40 Exam(s): CT ABDOMEN + PELVIS With Contrast IV Amt: 118ml opti 320 EXAM: CT Abdomen and Pelvis With Intravenous Contrast CLINICAL HISTORY: Reason for exam: Dizziness, Trauma. TECHNIQUE: Axial computed tomography images of the abdomen and pelvis with intravenous contrast. CTDI is 52.64 mGy and DLP is 1338.64 mGy-cm. Automated exposure control was utilized for the study. A dose lowering technique was utilized adhering to the principles of ALARA. CONTRAST: Patient received 118ml opti 320 of IV contrast COMPARISON: No relevant prior studies available. FINDINGS: Lung bases: Unremarkable. No mass. No consolidation. ABDOMEN: Liver: Innumerable subcentimeter hypodensities within the liver too small for further tissue characterization but likely representing cysts. Gallbladder and bile ducts: Unremarkable. No calcified stones. No ductal dilation. Pancreas: Unremarkable. No mass. No ductal dilation. Spleen: Unremarkable. No splenomegaly. Adrenals: Unremarkable. No mass. Kidneys and ureters: 1.4 cm left upper pole renal hypodensity likely representing cyst. No hydronephrosis. Stomach and bowel: Moderate amount of stool within the rectum. No obstruction. No mucosal thickening. PELVIS: Appendix: No findings to suggest acute appendicitis. Bladder: Unremarkable. No mass. Reproductive: Unremarkable as visualized. ABDOMEN and PELVIS: Intraperitoneal space: Unremarkable. No free air. No significant fluid collection. Bones/joints: Multilevel degenerative changes of the lower thoracic and lumbar spine. No acute fracture. No dislocation. Soft tissues: Unremarkable. Vasculature: Unremarkable. No abdominal aortic aneurysm. Lymph nodes: Unremarkable. No enlarged lymph nodes. IMPRESSION: No acute findings in the abdomen or pelvis. Electronically signed by: Filippo Guerrero MD 02/05/24 23:[address] 02/05/24 21:40 Exam(s): CT C SPINE EXAM: CT Cervical Spine Without Intravenous Contrast CLINICAL HISTORY: Reason for exam: Trauma. TECHNIQUE: Axial computed tomography images of the cervical spine without intravenous contrast. CTDI is 20.41 mGy and DLP is 359.91 mGy-cm. Automated exposure control was utilized for the study. A dose lowering technique was utilized adhering to the principles of ALARA. COMPARISON: None FINDINGS: No fracture or subluxations are noted. The vertebral body heights and alignment are preserved. No prevertebral soft tissue swelling. Note is made of multilevel cervical spondylosis with varying degrees of central canal and foramina stenoses. IMPRESSION: 1. No cervical fractures. 2. Cervical spondylosis with varying degrees of central canal and foramina stenoses. Electronically signed by: Filippo Guerrero MD 02/05/24 22:[address] 02/05/24 21:40 CR Exam(s): CT CHEST With Contrast IV Amt: 119ml optiray 320 EXAM: CT Chest With Intravenous Contrast CLINICAL HISTORY: Reason for exam: Dizziness, SOB, fall. TECHNIQUE: Axial computed tomography images of the chest with intravenous contrast. CTDI is 52.64 mGy and DLP is 1338.68 mGy-cm. Automated exposure control was utilized for the study. A dose lowering technique was utilized adhering to the principles of ALARA. CONTRAST: Patient received 119ml optiray 320 of IV contrast COMPARISON: No relevant prior studies available. FINDINGS: Lungs: Mild groundglass opacity scattered throughout the right lung. Left lung is clear. Right lower lobe pulmonary embolus. Pleural space: Small right pleural effusion. No pneumothorax. Heart: Unremarkable. No cardiomegaly. No significant pericardial effusion. No significant coronary artery calcifications. Bones/joints: Remote right healed fifth rib fracture. Multiple hypodensities within the liver and kidneys likely represent cysts. No dislocation. Soft tissues: Unremarkable. Vasculature: Unremarkable. No thoracic aortic aneurysm. Lymph nodes: Unremarkable. No enlarged lymph nodes. Upper abdomen: Elevation of the right hemidiaphragm. IMPRESSION: Small right pleural effusion. Right lower lobe pulmonary embolus Elevation right hemidiaphragm with right-sided volume loss. Correlate clinically for prior pneumonectomy. Communications: Call Doctor Pulmonary Embolism Electronically signed by: Filippo Guerrero MD 02/05/24 23:[address] 02/05/24 21:40 Exam(s): CT HEAD Without Contrast EXAM: CT Head Without Intravenous Contrast CLINICAL HISTORY: Reason for exam: Trauma. TECHNIQUE: Axial computed tomography images of the head/brain without intravenous contrast. CTDI is 37.72 mGy and DLP is 624.41 mGy-cm. Automated exposure control was utilized for the study. A dose lowering technique was utilized adhering to the principles of ALARA. COMPARISON: No relevant prior studies available. FINDINGS: Brain: Moderate ischemic microangiopathy. Age appropriate cerebral volume loss. No hemorrhage. Ventricles: Unremarkable. No ventriculomegaly. Bones/joints: Unremarkable. No acute fracture. Soft tissues: Subtle subcutaneous soft tissue emphysema involving the right-sided extracalvarial soft tissues. Sinuses: Unremarkable as visualized. No acute sinusitis. Mastoid air cells: Unremarkable as visualized. No mastoid effusion. IMPRESSION: No acute findings in the head/brain. Electronically signed by: Filippo Guerrero MD 02/05/24 22:45 PM Head CTA 02/05/24 21:40 Exam(s): CTA HEAD With Contrast IV Amt: 118ml opti 320 EXAM: CT Angiography Head With Intravenous Contrast CLINICAL HISTORY: Reason for exam: Dizziness, change in mental status. TECHNIQUE: Axial computed tomographic angiography images of the head with intravenous contrast. CTDI is 52.64 mGy and DLP is 1338.68 mGy-cm. Automated exposure control was utilized for the study. A dose lowering technique was utilized adhering to the principles of ALARA. MIP reconstructed images were created and reviewed. CONTRAST: Patient received 118ml opti 320 of IV contrast COMPARISON: No relevant prior studies available. FINDINGS: Right internal carotid artery: No acute findings. Intracranial segment is patent with no significant stenosis. No aneurysm. Right anterior cerebral artery: Unremarkable. No occlusion or significant stenosis. No aneurysm. Right middle cerebral artery: Unremarkable. No occlusion or significant stenosis. No aneurysm. Right posterior cerebral artery: Unremarkable. No occlusion or significant stenosis. No aneurysm. Right vertebral artery: Unremarkable as visualized. Left internal carotid artery: No acute findings. Intracranial segment is patent with no significant stenosis. No aneurysm. Left anterior cerebral artery: Unremarkable. No occlusion or significant stenosis. No aneurysm. Left middle cerebral artery: Unremarkable. No occlusion or significant stenosis. No aneurysm. Left posterior cerebral artery: Unremarkable. No occlusion or significant stenosis. No aneurysm. Left vertebral artery: Unremarkable as visualized. Basilar artery: Unremarkable. No occlusion or significant stenosis. No aneurysm. IMPRESSION: Normal head CTA. Electronically signed by: Filippo Guerrero MD 02/05/24 23:30 PM Neck CTA 02/05/24 21:40 Exam(s): CTA NECK With Contrast IV Amt: 118 cc opti 320 EXAM: CT Angiography Neck With Intravenous Contrast CLINICAL HISTORY: Reason for exam: Dizziness, change in mental status. TECHNIQUE: Routine carotid CT angiography protocol was performed with intravenous contrast. NASCET criteria using the distal ICAs for comparison were used for evaluation of stenoses. CTDI is 52.64 mGy and DLP is 1338.68 mGy-cm. Automated exposure control was utilized for the study. A dose lowering technique was utilized adhering to the principles of ALARA. MIP reconstructed images were created and reviewed. CONTRAST: Patient received 118 cc opti 320 of IV contrast COMPARISON: None. FINDINGS: VASCULATURE: Right common carotid artery: Unremarkable. No occlusion or significant stenosis. No dissection. Right internal carotid artery: Unremarkable. Extracranial segment is patent with no occlusion or significant stenosis. No dissection. Right external carotid artery: Unremarkable. No occlusion. Right vertebral artery: Unremarkable. No occlusion or significant stenosis. No dissection. Left common carotid artery: Unremarkable. No occlusion or significant stenosis. No dissection. Left internal carotid artery: Unremarkable. Extracranial segment is patent with no occlusion or significant stenosis. No dissection. Left external carotid artery: Unremarkable. No occlusion. Left vertebral artery: Unremarkable. No occlusion or significant stenosis. No dissection. NECK: Bones/joints: Unremarkable. No acute fracture. Soft tissues: Unremarkable. Lung apices: Clear. CAROTID STENOSIS REFERENCE USING NASCET CRITERIA: % ICA stenosis = (1 - narrowest ICA diameter/diameter of distal cervical ICA) x 100. Mild - <50% stenosis. Moderate - 50-69% stenosis. Severe - 70-94% stenosis. Near occlusion - 95-99% stenosis. Occluded - 100% stenosis. IMPRESSION: Negative CTA neck. Electronically signed by: Filippo Guerrero MD 02/05/24 22:54 PM Diagnostic Findings EKG as per my interpretation : Rate 105, sinus tachycardia, normal axis, T wave abnormalities inferior leads
[2024-02-06] MEDS: hydrALAZINE HCL 20 MG/ML VIAL IV ONE
[2024-02-06] MEDS: lisinopril 2.5 MG TAB PO STA (00:34)
[2024-02-06 00:36] LABS: Thyroid Stimulating Hormone 1.803 uIu/ml (0.300-4.500)
[2024-02-06] MEDS ORDERED: ACETAMINOPHEN 325 MG TAB PO PRN (00:44)
[2024-02-06] MEDS ORDERED: PROMETHAZINE 6.25 MG/50.25 ML BAG IV PRN (00:44)
[2024-02-06] MEDS ORDERED: NITROGLYCERIN SL 0.4 MG/TAB TAB SL PRN (01:08)
[2024-02-06] MEDS: ACETAMINOPHEN 325 MG TAB PO STA (01:13)
[2024-02-06] MEDS: Heparin IV Adult Wt-Based Low-Dose *NO* INITIAL Bolus Protocol IV STA (01:19)
[2024-02-06] MEDS: SODIUM CHLORIDE 0.9% 1,000 ML IV ONE (01:19)
[2024-02-06] MEDS: HEPARIN SODIUM/DEXTROSE 25,000 UNITS/500 ML BAG IV SCH (01:45)
[2024-02-06] MEDS: HEPARIN 25000 UNIT/500 ML D5W IV ONE (02:22)
[2024-02-06] MEDS: hydrOXYzine HCl 10 MG TAB PO PRN (03:02)
--- OUTSIDE RECORDS SUMMARY | 2024-02-06 05:08 | External Medical Summary | Summary of Care ---
Author Name Unknown Organization [facility] Address [address] [address] Phone [phone] Care Team Providers Care Desulphurizer Operator Name Role Phone Molly Castelan PA-C Primary Care Provider [phone] Reason for Visit * Reason Onset Date Comments Medication Question 12/02/2023 Encounter Details Date Type Department Care Team (Late st Contact Info) Description 12/02/2023 Telephone Family Practice [facility] [place] [address] [facility] [place] [address] Molly Castelan PA-C [address] [facility] [place] [address] Medication Question Allergies Active Allergy Reactions Criticality Noted Date Comments Novocain 02/22/2010 Weird and scary sensation. Was given oxygen documented as of this encounter (statuses as of 12/02/2023) Medications Medication Sig Dispensed Refills Start Date End Date Status Triamcinolone Acetonide 0.1 % External Cream (Aristocort) Apply topically to affected area 2 times a day. To affected area. 60 g 5 09/03/2023 Active Escitalopram Oxalate 5 MG Oral Tablet (Lexapro)Indications :CLIFFORD (generalized anxiety disorder) Take 1 Tablet by mouth in the morning. 30 Tablet 5 09/03/2023 Active documented as of this encounter (statuses as of 12/02/2023) Active Problems Problem Noted Date Diagnosed Date Borderline personality disorder 05/08/2020 Age-related osteoporosis wit hout current pathological fracture 02/27/2020 HTN, goal below 140/90 12/15/2019 CLIFFORD (generalized anxiety disorder) 07/12/2018 Major depressive disorder, recurrent episode, mo derate 10/14/2006 documented as of this encounter (statuses as of 12/02/2023) Resolved Problems Problem Noted Date Diagnosed Date Resolved Date Unspecified asthma, uncomplicated 05/30/2020 07/04/2020 Gastro-esophageal reflux dis ease without esophagitis 10/20/2019 09/03/2023 Kidney disease, chronic, sta ge III (GFR 30-59 ml/min) 09/22/2017 10/20/2019 Overview: Per CKD protocol #1 History of nonmelanoma skin cancer 09/01/2017 07/12/2018 Overview: SCC left lower leg 2015 Actinic keratosis 09/20/2013 09/01/2017 Diffuse photoaging of skin 09/20/2013 1 Dermatitis 09/20/2013 02/02/2017 Esophageal reflux 09/26/2009 07/11/2019 Dyslipidemia, goal to be determined 04/16/2009 04/06/2013 Overview: Per Lipid Taxonomy. Mixed dyslipidemia 07/19/2008 9 Overview: Per Lipid Taxonomy. NONALLERGIC RHINITIS 03/23/2007 019 Deviated nasal septum 02/23/20072018 Dysfunction of eustachian tube 10/14/2006 02/02/2017 ADVANCE DIRECTIVE INFORMATION 05/02/2005 03/16/2008 Overview: No, Advance Directive brochure given to patient. Osteoporosis 01/09/2003 07/11/2019 Allergic rhinitis 08/10/2000 09/13/2008 Cough 08/10/2000 03/16/2008 LUNG, S/P PNEUMONECTOMY 08/10/200006/2016 ADJ REACT-MIXED EMOTION 02/12/200006/2016 ACUTE BRONCHITIS 02/12/2000 03/16/2008 JOINT PAIN-L-LEG 02/12/2000 02/02/2017 documented as of this encounter (statuses as of 12/02/2023) Immunizations Name Administration Dates Next Due Pneumococcal Conjugate Vacc, 13 Valent (Prevnar) 10/20/2019(Deferred: Patient Refused) Pneumococcal Polysaccharide PPV23 (Pneumovax) 02/14/2008 Seasonal Influenza, Split, I IV3, With Preserve, Inj 02/14/2008 TD, Preservative Free 11/05/2021 documented as of this encounter Social History Tobacco Use Types Packs/Day Years Used Date Smoking Tobacco: Never Smokeless Tobacco: Never Comments:no passive smoke ex posures Alcohol Use Standard Drinks/Week Comments Yes 0 (1 standard drink = 0.6 oz pur e alcohol) occassional 2 drinks/week PHQ-2 Answer Date Recorded PHQ Adult Total Score 2 06/19/2022 Utilities Answer Date Recorded Do you have trouble paying y our heating, water, or electric bill? (Adult - for ages 18 years and over) Not on file 10/20/2023 Is your family able to pay t he heat, water, or electric bill? (Household - for ages 0-17 years) Not on file 10/20/2023 Does your family have access to good internet? (Household - for ages 0-17 years) Not on file 10/20/2023 Social Connections Answer Date Recorded How often do you feel lonely or isolated from those around you? (Adult - for ages 18 years and over) Not on file 10/20/2023 Sex and Gender Information Value Date Recorded Sex Assigned at Not on file Gender Identity Not on file Sexual Orientation Not on file Job Start Date Occupation Industry Not on file Not on file Not on file documented as of this encounter Miscellaneous Notes * Telephone Encounter - Mina Pritchett RPh - 12/02/2023 6:36 PM EDT Discussed melatonin and where to get. Thanks, Mina Pritchett PharmD Clinical Pharmacist [facility] [phone] 12/02/2023, 6:40 PM * Telephone Encounter - Becky Sheehan PHARM Tech - 12/02/2023 6:26 PM EDT Pt calling asking in regards to melatonin. Warm transfer. Thank You, Becky Sheehan [facility] Acquisition Specialist III [facility] 12/02/2023, 6:26 PM documented in this encounter Plan of Treatment Upcoming Encounters Date Type Department Care Team (Late st Contact Info) Description 01/05/2024 10:20 AM EDT Office Visit Family Practice [facility] [address] [facility] [place] [place] [address] Molly Castelan PA-C [address] [facility] [place] [address] 07/22/2024 1:00 PM EDT Office Visit Neurology [facility] [address] [facility] [place] [address] Josesito Willis, DO [address] [place] [address] Health Maintenance Due Date Last Done Comments Pneumococcal Vaccine: 65+ Years (2 of 2 - PCV) 02/13/2009 02/14/2008 *BISPHONATE OR OTHER ACCEPTABLE MEDICATION NEEDED FOR OSTEOPOROSIS (REFER TO SMARTSET #1146) 04/14/2020 DXA Scan 02/21/2022 02/22/2020, 10/2016, 03/12/2010, Additional history exists COVID-19 Vaccine ( - 2022- season) 2023 Depression Monitoring 06/19/2023 06/19/2022 Influenza Vaccine (FLU shot) (#1) 2024 02/14/2008 GFR 09/02/2024 09/03/2023, 06/04, 06/04/2021, Additional history exists Albumin/Creatinine Ratio 06/19/2025 06/19/2022, 05/2021 DTaP,Tdap,and Td Vaccines (3 - Td or Tdap) 11/06/2031 11/05/2021, 10/16/2021 (Declined) VITAMIN D LEVEL ONCE IN A LIFETIME-USE SMARTSET# [id number] Completed 06/28/2020, 12/28/2018, 08/10/2017 HPV (Gardasil) Vaccine Aged Out No lo nger eligible based on patient's age to complete this topic Hepatitis B Vaccine Aged Out No longe r eligible based on patient's age to complete this topic MENINGOCOCCAL (MENACTRA/MENVEO) Aged Out No longer eligible based on patient's age to complete this topic Zoster Vaccines Discontinued documented as of this encounter Medical Devices Not on filedocumented as of this encounter Care Teams Desulphurizer Operator Relationship Specialty Start Date End Date Flip August Kristin, JOCELYNE [address] [place] [address] PCP - General Physician [employer]obile [employer] Property Underwriter 09/18/21 documented as of this encounter
--- OUTSIDE RECORDS SUMMARY | 2024-02-06 05:08 | External Medical Summary | Summary of Care ---
Author Name Unknown Organization [facility] Address [address] [facility] [address] Phone [phone] Care Team Providers Care Corporate Coordinator Name Role Phone Molly Castelan PA-C Primary Care Provider [phone] Reason for Visit * Reason Onset Date Comments FYI 02/05/2024 Encounter Details Date Type Department Care Team (Late st Contact Info) Description 02/05/2024 Telephone Family Practice [facility] [place] [address] [facility] [place] [address] Molly Castelan PA-C [address] [facility] [place] [address] FYI Allergies Active Allergy Reactions Criticality Noted Date Comments Novocain 02/22/2010 Weird and scary sensation. Was given oxygen documented as of this encounter (statuses as of 02/05/2024) Medications Medication Sig Dispensed Refills Start Date [...] as of this encounter (statuses as of 02/05/2024) Active Problems Problem Noted Date Diagnosed Date Borderline personality disorder 05/08/2020 Age-related osteoporosis wit hout current pathological fracture 02/27/2020 HTN, goal below 140/90 12/15/2019 CLIFFORD (generalized anxiety disorder) 07/12/2018 Major depressive disorder, recurrent episode, mo derate 10/14/2006 documented as of this encounter (statuses as of 02/05/2024) Resolved Problems Problem Noted Date Diagnosed Date [...] as of this encounter (statuses as of 02/05/2024) Immunizations Name Administration Dates Next Due Pneumococcal Conjugate Vacc, 13 Valent (Prevnar) 10/20/2019(Deferred: Patient Refused) Pneumococcal Polysaccharide PPV23 (Pneumovax) 02/14/2008 Seasonal Influenza Vac., MDV , IM, 0.5 mL (Fluzone) 02/14/2008 TD, Preservative Free 11/05/2021 documented as [...] encounter Miscellaneous Notes * Telephone Encounter - Wilber Woodard OSA - 02/05/2024 8:52 AM EDT Checking for orders documented in this encounter Plan of Treatment Upcoming Encounters Date Type Department Care Team (Late st Contact Info) Description 07/22/2024 1:00 PM EDT Office Visit Neurology [facility] [place] [address] [facility] [place] [address] Josesito Willis, DO [address] [place] [address] Health Maintenance Due Date Last Done Comments Adult Wellness Visit 2006 Pneumococcal Vaccine: 65+ Years (2 of 2 - PCV) 02/13/2009 02/14/2008 *BISPHONATE OR OTHER ACCEPTABLE MEDICATION NEEDED FOR OSTEOPOROSIS (REFER TO SMARTSET #1146) 04/14/2020 DXA Scan 02/21/2022 02/22/2020, 12/0 10/2016, 03/12/2010, Additional history exists Depression Monitoring 06/19/2023 06/19/2022 COVID-19 Vaccine (1 - season) 2024 Influenza Vaccine (FLU shot) (#1) 2024 02/14/2008 GFR 09/02/2024 09/03/2023, 06/04, 06/04/2021, Additional history exists Albumin/Creatinine Ratio 06/19/2025 06/19/2022, 05/2021 DTap/Tdap Vaccines (3 - Td or Tdap) 11/06/2031 11/05/2021, 10/16/2021 (Declined) VITAMIN D LEVEL ONCE IN A LIFETIME-USE SMARTSET# 37301 Completed 06/28/2020, 12/28/2018, 08/10/2017 HPV (Gardasil) Vaccine [...] filedocumented as of this encounter Care Teams Corporate Coordinator Relationship Specialty Start Date End Date Flip Molly JOCELYNE Foster [address] [place], [place] [address] PCP - General Physician Adult Literacy Teacher 09/18/21 documented as of this encounter
--- OUTSIDE RECORDS SUMMARY | 2024-02-06 05:08 | External Medical Summary | Summary of Care ---
Author Name Unknown Organization [facility] Address [address] [place] [address] Phone [phone] Care Team Providers Care Prototype Engineer Manager Name Role Phone Molly Castelan PA-C Primary Care Provider [phone] Reason for Visit * Reason Onset Date Comments Appointment 12/04/2023 Encounter Details Date Type Department Care Team (Late st Contact Info) Description 12/04/2023 Telephone Family Practice [facility] [place] [address] [facility] [place] [address] Molly Castelan PA-C [address] [facility] [place] [address] Appointment Allergies Active Allergy Reactions Criticality Noted Date Comments Novocain 02/22/2010 Weird and scary sensation. Was given oxygen documented as of this encounter (statuses as of 12/04/2023) Medications Medication Sig Dispensed Refills Start Date [...] as of this encounter (statuses as of 12/04/2023) Active Problems Problem Noted Date Diagnosed Date Borderline personality disorder 05/08/2020 Age-related osteoporosis wit hout current pathological fracture 02/27/2020 HTN, goal below 140/90 12/15/2019 CLIFFORD (generalized anxiety disorder) 07/12/2018 Major depressive disorder, recurrent episode, mo derate 10/14/2006 documented as of this encounter (statuses as of 12/04/2023) Resolved Problems Problem Noted Date Diagnosed Date [...] as of this encounter (statuses as of 12/04/2023) Immunizations Name Administration Dates Next Due Pneumococcal [...] encounter Miscellaneous Notes * Telephone Encounter - Priscila Serrano OSA - 12/04/2023 9:16 AM EDT I contacted patient and she was very rude and stated that she would just like August to call her anddiscuss her needs. That patient did want any appointment set up. Patient stated that she will wait till January to be seen. Patient continently asked things over and over again. documented in this encounter Plan of Treatment Upcoming Encounters Date Type Department Care Team (Late st Contact Info) Description 01/05/2024 10:20 AM EDT Office Visit [facility] [place] [address] [place] [address] Molly Castelan PA-C [address] [facility] [place] [address] 07/22/2024 1:00 PM EDT Office Visit Neurology [facility] [address] [facility] [place] [address] Josesito Willis, DO [address] [place] [address] Health Maintenance Due Date Last Done Comments [...] Additional history exists Albumin/Creatinine Ratio 06/19/2025 06/19/2022, 0205/2021 DTaP,Tdap,and Td Vaccines (3 - Td or Tdap) 11/06/2031 11/05/2021, 10/16/2021 (Declined) VITAMIN D LEVEL ONCE IN A LIFETIME-USE SMARTSET# [id number] Completed 06/28/2020, 12/28/2018, 08/10/2017 HPV (Gardasil) Vaccine [...] filedocumented as of this encounter Care Teams Prototype Engineer Manager Relationship Specialty Start Date End Date Molly Castelan PA-C [address] [place], [place] [address] PCP - General Physician E Learning Designer 09/18/21 documented as of this encounter
--- OUTSIDE RECORDS SUMMARY | 2024-02-06 05:08 | External Medical Summary | Summary of Care ---
Author Name Unknown Organization [facility] Address [address] [place] [address] Phone [phone] Care Team Providers Care Headend Technician Name Role Phone VanessaMolly carrera Kristin CASANOVA Primary Care Provider [phone] Encounter Details Date Type Department Care Team (Late st Contact Info) Description 12/12/2023 Result Scan Unspecified Department <No scans attached> Allergies Active Allergy Reactions Criticality Noted Date Comments Novocain 02/22/2010 Weird and scary sensation. Was given oxygen documented as of this encounter (statuses as of 12/14/2023) Medications Medication Sig Dispensed Refills Start Date [...] as of this encounter (statuses as of 12/14/2023) Active Problems Problem Noted Date Diagnosed Date Borderline personality disorder 05/08/2020 Age-related osteoporosis wit hout current pathological fracture 02/27/2020 HTN, goal below 140/90 12/15/2019 CLIFFORD (generalized anxiety disorder) 07/12/2018 Major depressive disorder, recurrent episode, mo derate 10/14/2006 documented as of this encounter (statuses as of 12/14/2023) Resolved Problems Problem Noted Date Diagnosed Date Resolved Date Unspecified asthma, uncomplicated 05/30/2020 07/04/2020 Gastro-esophageal reflux dis ease without esophagitis 10/20/2019 09/03/2023 Kidney disease, chronic, sta ge III (GFR 30-59 ml/min) 09/22/2017 10/20/2019 Overview: Per CKD protocol #1 History of nonmelanoma skin cancer 09/01/2017 07/12/2018 Overview: SCC left lower leg 2016 Actinic keratosis 09/20/2013 09/01/2017 Diffuse photoaging of [...] as of this encounter (statuses as of 12/14/2023) Immunizations Name Administration Dates Next Due Pneumococcal [...] on file documented as of this encounter Plan of Treatment Upcoming Encounters Date Type Department Care Team (Late st Contact Info) Description 01/05/2024 10:20 AM EDT Office Visit Family Practice [facility] [address] [facility] [place] [address] Molly Castelan PA-C [address] [place] [address] 07/22/2024 1:00 PM EDT Office Visit Neurology [facility] [address] [place] [address] Josesito Willis, DO [address] [place] [address] Health Maintenance Due Date Last Done Comments Adult Wellness Visit 2006 Pneumococcal Vaccine: 65+ Years (2 of 2 - PCV) 02/13/2009 02/14/2008 *BISPHONATE OR OTHER ACCEPTABLE MEDICATION NEEDED FOR OSTEOPOROSIS (REFER TO SMARTSET #1146) 04/14/2020 DXA Scan 02/21/2022 02/22/2020, 12/0 10/2016, 03/12/2010, Additional history exists COVID-19 Vaccine ( - 24 season) 2023 Depression Monitoring 06/19/2023 06/19/2022 Influenza Vaccine (FLU shot) (#1) 2024 02/14/2008 GFR 09/02/2024 09/03/2023, 06/04, 06/04/2021, Additional history exists Albumin/Creatinine Ratio 06/19/2025 06/19/2022, 0205/2021 DTaP,Tdap,and Td Vaccines (3 - Td or Tdap) 11/06/2031 11/05/2021, 10/16/2021 (Declined) VITAMIN D LEVEL ONCE IN A LIFETIME-USE SMARTSET# [id number] Completed 06/28/2020, 12/28/2018, 08/10/2017 HPV (Gardasil) Vaccine [...] Not on filedocumented as of this encounter Procedures Procedure Name Priority Date/Time Associated Diagnosis Comments RADIOLOGY SCANNED RESULT 12/12/2023 documented in this encounter Results * RADIOLOGY SCANNED RESULT (12/12/2023) 12/12/2023 No Physician Data Unknown DIAGNOSTIC RAD IOLOGY SERVICES documented in this encounter Care Teams Headend Technician Relationship Specialty Start Date End Date Flip August JOCELYNE Foster [address] [place] [address] PCP - General Physician Services Delivery Driver 09/18/21 documented as of this encounter
--- OUTSIDE RECORDS SUMMARY | 2024-02-06 05:08 | External Medical Summary | Summary of Care ---
Author Name Unknown Organization [facility] Address [address] [place] [address] Phone [phone] Care Team Providers Care Certified Nurse Practitioner Name Role Phone Molly Castelan PA-C Primary Care Provider [phone] Reason for Visit * Reason Onset Date Comments Advice 09/10/2023 Encounter Details Date Type Department Care Team (Late st Contact Info) Description 09/10/2023 Telephone Family Practice [facility] [place] [facility] [place] [address] Molly Castelan PA-C [address] [facility] [place] [address] Advice Allergies Active Allergy Reactions Criticality Noted Date Comments Novocain 02/22/2010 Weird and scary sensation. Was given oxygen documented as of this encounter (statuses as of 12/10/2023) Medications Medication Sig Dispensed Refills Start Date [...] as of this encounter (statuses as of 12/10/2023) Active Problems Problem Noted Date Diagnosed Date Borderline personality disorder 05/08/2020 Age-related osteoporosis wit hout current pathological fracture 02/27/2020 HTN, goal below 140/90 12/15/2019 CLIFFORD (generalized anxiety disorder) 07/12/2018 Major depressive disorder, recurrent episode, mo derate 10/14/2006 documented as of this encounter (statuses as of 12/10/2023) Resolved Problems Problem Noted Date Diagnosed Date [...] as of this encounter (statuses as of 12/10/2023) Immunizations Name Administration Dates Next Due Pneumococcal [...] encounter Miscellaneous Notes * Telephone Encounter - Molly Castelan PA-C - 09/23/2023 6:15 PM EDT See letter that was sent on 09/03. All labs were normal * Telephone Encounter - Eliza Hung LPN - 09/23/2023 11:22 AM EDT LMOM to have pt return call phone to PCP office to discuss below. Patient is also inquiring about lab results done on 09/02? * Telephone Encounter - Susi Guerrero OSA - 09/10/2023 12:27 PM EDT Patient is calling she is very confused on the medication she was prescribed at her last visit and had some questions about it, but also would like to discuss the Neurology referral and never received her lab results. She would also like to discuss more about the Psychiatry referral. Patient is very confused - Please advise. documented in this encounter Plan of Treatment Upcoming Encounters Date Type Department Care Team (Late st Contact Info) Description 01/05/2024 10:20 AM EDT Office Visit Family Practice [facility] [address] [facility] [place] [address] Molly Castelan PA-C [address] [facility] [place] [address] 07/22/2024 1:00 PM EDT Office Visit Neurology [facility] [address] [facility] [place] [address] Josesito Willis, DO [address] [place], [place] [id number] Health Maintenance Due Date Last Done Comments Adult Wellness Visit 2006 Pneumococcal Vaccine: 65+ Years (2 of 2 - PCV) 02/13/2009 02/14/2008 *BISPHONATE OR OTHER ACCEPTABLE MEDICATION NEEDED FOR OSTEOPOROSIS (REFER TO SMARTSET #1146) 04/14/2020 DXA Scan 02/21/2022 02/22/2020, 1210/2016, 03/12/2010, Additional history exists COVID-19 Vaccine ( season) 2023 Depression Monitoring 06/19/2023 06/19/2022 Influenza Vaccine (FLU shot) (#1) 2024 02/14/2008 GFR 09/02/2024 09/03/2023, 06/04, 06/04/2021, Additional history exists Albumin/Creatinine Ratio 06/19/2025 06/19/2022, 020 05/2021 DTaP,Tdap,and Td Vaccines (3 - Td or Tdap) 11/06/2031 11/05/2021, 10/16/2021 (Declined) VITAMIN D LEVEL ONCE IN A LIFETIME-USE SMARTSET# [id number] Completed 06/28/2020, 12/28/2018, 08/10/2017 HPV (Gardasil) Vaccine [...] filedocumented as of this encounter Care Teams Certified Nurse Practitioner Relationship Specialty Start Date End Date FlipAugust JOCELYNE Foster [address] [place] [address] PCP - General Physician Veterinary Microbiologist 09/18/21 documented as of this encounter
--- OUTSIDE RECORDS SUMMARY | 2024-02-06 05:08 | External Medical Summary | Summary of Care ---
Author Name Unknown Organization [facility] Address [address] [place] [address] Phone [phone] Care Team Providers Care Skiver Machine Name Role Phone Flip Molly Foster PA-C Primary Care Provider [phone] Reason for Visit * Reason Comments Dizziness Encounter Details Date Type Department Care Team (Late st Contact Info) Description 02/05/2024 8:00 AM EDT Office Visit [facility] [place] [address] [facility] [place] [address] Josefa Slaughter MD 200 [facility] [place] [address] Lightheadedness*; Confusion with nonfocal neurological examination; Major depressive disorder, recurrent episode, moderate (HCC); HTN, goal below 140/90 Allergies Active Allergy Reactions Criticality Noted Date [...] Date Borderline personality disorder 05/08/2020 Age-related osteoporosis michelle bedolla current pathological fracture 02/27/2020 HTN, goal below [...] 04/06/2013 Overview: Per Lipid Taxonomy. Mixed dyslipidemia 07/19/200804/16/ 9 Overview: Per Lipid Taxonomy. NONALLERGIC RHINITIS [...] on file documented as of this encounter Last Filed Vital Signs Vital Sign Reading Time Taken Comments Blood Pressure 146/72 02/05/2024 7:56 AM EDT Pulse 96 02/05/2024 7:56 AM EDT Temperature 36.4 C (97.5 F) 02/05/2024 7:56 AM ED T Respiratory Rate 16 02/05/2024 7:56 AM EDT Oxygen Saturation 97% 02/05/2024 7:56 AM EDT Inhaled Oxygen Concentration - - Weight 49 kg (108 lb) 02/05/2024 7:56 AM EDT Height - - Body Mass Index 23.11 09/03/2023 2:00 PM EDT documented in this encounter Progress Notes * Josefa Slaughter MD - 02/05/2024 7:59 AM EDT Subjective Chief Complaint Patient presents with Dizziness HPI: Dulce Bhandari is a 83 year old female. Patient is unaccompanied. The following issues were addressed today: Patient with hypertension, depression, anxiety on Lexapro presents today with c/o lightheadedness. She states this started several days ago. She is unable to further describe the lightheadedness and what exacerbates it. She notes she is having trouble walking and her son drove her here today. He isnot present in the exam room. States that she has fallen a few times and yesterday hit her head on the floor. She is not sure if she lost consciousness. She denies headache, slurred speech, extremityweakness, or facial drooping. Review of Systems: See HPI Objective BP 146/72 | Pulse 96 | Temp 36.4 C (97.5 F) (Tympanic) | Resp 16 | Wt 49 kg (108 lb) | SpO2 97%| BMI 23.11 kg/m | BSA 1.41 m Wt Readings from Last 3 Encounters: 02/05/24 49 kg (108 lb) 09/03/23 51.3 kg (113 lb) 08/13/22 54.2 kg (119 lb 6.4 oz) BP Readings from Last 3 Encounters: 02/05/24 146/72 09/03/23 142/72 08/27/22 146/70 General: No acute distress Head: Normocephalic and atraumatic Eyes: No conjunctival injection, no scleral icterus Ears: External ear unremarkable, canals normal and tympanic membranes clear bilaterally Throat/Mouth: Oral mucosa pink and moist, tongue normal in appearance without lesions and with symmetrical movement, pharynx normal in appearance Cardiovascular: Regular rate and rhythm, no murmur Respiratory: Good respiratory effort, breath sounds equal and clear to auscultation bilaterally Neurological: Alert, oriented to person and place CN II: Visual acuity not tested today. Bilateral pupillary light reflex intact. Visual valenzuela full to confrontation. CN III, IV, : Extraocular movements intact. Pupils are equal, round, and reactive to light and accomodation. CN V: Facial sensation intact to light touch. Jaw strength symmetrical and strong bilaterally. CN VII: Facial symmetry at rest and with movement. Able to wrinkle forehead, close eyes tightly, smile, puff out cheeks, and show teeth symmetrically. CN VIII: Auditory acuity intact bilaterally. Rinne and Nava not tested today. CN IX, X: Palatal movements symmetric with phonation. CN XI: Sternocleidomastoid and trapezius muscle strength intact bilaterally. CN XII: Tongue midline at rest. Tongue protrusion straight and strong, with no deviation. Assessment & Plan 1. Lightheadedness 2. Confusion with nonfocal neurological examination 3. Major depressive disorder, recurrent episode, moderate (HCC) Continue Lexapro 5mg. 4. HTN, goal below 140/90 Stable. Patient is not on medication. Patient is new to me and I am not familiar with her baseline mental status. She is having difficulty describing exact symptoms she is experiencing. At times she is tangential, e.g. talking about a daughter she lost at 9 months old over 50 years ago. Exam is non-focal but she has a wide-based and unsteady gait, using objects to stabilize herself. Offered to bring her son into the exam room to gather further history and discuss recommendations but she declined. Recommended she go to the emergency room. She will go to [facility]. Declines ambulance, states her son will drive her. This note was electronically signed by Josefa Slaughter MD documented in this encounter Nursing Notes * Pastora Humphries LPN - 02/05/2024 7:55 AM EDT Dulce Bhandari presents with complaints of dizziness for past several days documented in this encounter Plan of Treatment Upcoming Encounters Date Type Department Care Team (Late st Contact Info) Description 07/22/2024 1:00 PM EDT Office Visit Neurology [facility] [address] [place] [address] Josesito Willis, DO [address] [place] [address] Health Maintenance Due Date Last Done Comments Adult Wellness Visit 2006 Pneumococcal Vaccine: 65+ Years (2 of 2 - PCV) 02/13/2009 02/14/2008 *BISPHONATE OR OTHER ACCEPTABLE MEDICATION NEEDED FOR OSTEOPOROSIS (REFER TO SMARTSET #1146) 04/14/2020 DXA Scan 02/21/2022 02/22/2020, 12/10/2016, 03/12/2010, Additional history exists Depression Monitoring 06/19/2023 06/19/2022 COVID-19 Vaccine ( - season) 2024 Influenza Vaccine (FLU shot) (#1) 2024 02/14/2008 GFR 09/02/2024 09/03/2023, 06/04, 06/04/2021, Additional history exists Albumin/Creatinine Ratio 06/19/2025 06/19/2022, 05/2021 DTap/Tdap Vaccines (3 - Td or Tdap) 11/06/2031 11/05/2021, 10/16/2021 (Declined) VITAMIN D LEVEL ONCE IN A LIFETIME-USE SMARTSET# 11597 Completed 06/28/2020, 12/28/2018, 08/10/2017 HPV (Gardasil) Vaccine [...] Not on filedocumented as of this encounter Visit Diagnoses Diagnosis Lightheadedness- Primary Dizziness and giddiness Confusion with nonfocal neurological examination Unspecified psychosis Major depressive disorder, recurrent episode, moderate (HCC) Major depressive disorder, recurrent episode, moderate HTN, goal below 140/90 Unspecified essential hypertension documented in this encounter Care Teams Skiver Machine Relationship Specialty Start Date End Date FlipAugust JOCELYNE Foster [address] [place] [address] PCP - General Physician Group Home Manager 09/18/21 documented as of this encounter"
--- OUTSIDE RECORDS SUMMARY | 2024-02-06 05:09 | External Medical Summary | Summary of Care ---
Author Name Unknown Organization [facility] Address [address] [facility] [place] [address] Phone [phone] Care Team Providers Care Seismographer Name Role Phone VanessaMolly carrera JOCELYNE Primary Care Provider [phone] Encounter Details Date Type Department Care Team (Late st Contact Info) Description 09/07/2023 Orders Only PATIENT PORTAL DO NOT DELETE THIS DEPT USED BY [place] [id number] Allergies Active Allergy Reactions Criticality Noted Date Comments Novocain 02/22/2010 Weird and scary sensation. Was given oxygen documented as of this encounter (statuses as of 09/07/2023) Medications Medication Sig Dispensed Refills Start Date [...] as of this encounter (statuses as of 09/07/2023) Active Problems Problem Noted Date Diagnosed Date Borderline personality disorder 05/08/2020 Age-related osteoporosis wit hout current pathological fracture 02/27/2020 HTN, goal below 140/90 12/15/2019 CLIFFORD (generalized anxiety disorder) 07/12/2018 Major depressive disorder, recurrent episode, mo derate 10/14/2006 documented as of this encounter (statuses as of 09/07/2023) Resolved Problems Problem Noted Date Diagnosed Date [...] as of this encounter (statuses as of 09/07/2023) Immunizations Name Administration Dates Next Due Pneumococcal [...] Recorded PHQ Adult Total Score 2 06/19/2022 Sex and Gender Information Value Date Recorded [...] 10:20 AM EDT Office Visit Family Practice [facility] [address] [facility] [place] [address] Molly Castelan PA-C [address] [facility] [place] [address] 07/22/2024 1:00 PM EDT Office Visit Neurology [facility] [address] [facility] [place] [address] Josesito Willis, DO [address] [place] [address] Health Maintenance Due Date Last Done Comments Pneumococcal Vaccine: 65+ Years (2 of 2 - PCV) 02/13/2009 02/14/2008 *BISPHONATE OR OTHER ACCEPTABLE MEDICATION NEEDED FOR OSTEOPOROSIS (REFER TO SMARTSET #1146) 04/14/2020 DXA Scan 02/21/2022 02/22/2020, 10/2016, 03/12/2010, Additional history exists COVID-19 Vaccine ( season) 2023 Influenza Vaccine (FLU shot) (Season Ended) 2024 02/14/2008 GFR 09/02/2024 09/03/2023, 06/04, 06/04/2021, Additional history exists Albumin/Creatinine Ratio 06/19/2025 06/19/2022, 05/2021 DTaP,Tdap,and Td Vaccines (3 - Td or Tdap) 11/06/2031 11/05/2021, 10/16/2021 (Declined) VITAMIN D LEVEL ONCE IN A LIFETIME-USE SMARTSET# 19539 Completed 06/28/2020, 12/28/2018, 08/10/2017 GARDASIL-HPV IMMUNIZATION SERIES Aged Out No longer eligible based on patient's age to complete this topic Hepatitis B Aged Out No longer eligi ble based on patient's age to complete this topic MENINGOCOCCAL (MENACTRA/MENVEO) Aged Out No longer eligible based on patient's age to complete this topic Zoster Vaccines Discontinued documented as of this encounter Medical Devices Not on filedocumented as of this encounter Care Teams Seismographer Relationship Specialty Start Date End Date Flip August Kristin, JOCELYNE [address] [place] [address] PCP - General Physician Pump Runner 09/18/21 documented as of this encounter
--- OUTSIDE RECORDS SUMMARY | 2024-02-06 05:09 | External Medical Summary | Summary of Care ---
Author Name Unknown Organization [facility] Address [address] [facility] [address] Phone [phone] Care Team Providers Care Development Engineer Name Role Phone Molly Castelan PA-C Primary Care Provider [phone] Reason for Visit * Reason Onset Date Comments FYI 09/07/2023 Encounter Details Date Type Department Care Team (Late st Contact Info) Description 09/07/2023 Telephone Family Practice [facility] [place] [address] [facility] [place] [address] Molly Castelan PA-C [address] [facility] [place] [address] FYI Allergies Active Allergy Reactions Criticality Noted [...] encounter Miscellaneous Notes * Telephone Encounter - Josefa Gruber OSA - 09/07/2023 6:19 PM EDT Pt came in to drop off a urin spec. Pt was confused when told that the lab was closed (6:15 PM) Pt said that she wasn't told when to come back. Pt was very confused, but sweet. documented in this encounter Plan of Treatment Upcoming Encounters Date Type Department Care Team (Late st Contact Info) Description 01/05/2024 10:20 AM EDT Office Visit Family [facility] [address] [place] [address] [address] Molly Castelan PA-C [address] [place] [address] [address] 07/22/2024 1:00 PM EDT Office Visit Neurology [facility] [address] [place] [address] [address] Josesito Willis, DO [address] [facility] [address] Health Maintenance Due Date Last Done Comments Pneumococcal Vaccine: 65+ Years (2 of 2 - PCV) 02/13/2009 02/14/2008 *BISPHONATE OR OTHER ACCEPTABLE MEDICATION NEEDED FOR OSTEOPOROSIS (REFER TO SMARTSET #1146) 04/14/2020 DXA Scan 02/21/2022 02/22/2020, 10/2016, 03/12/2010, Additional history exists COVID-19 Vaccine ( - season) 2023 Influenza Vaccine (FLU shot) (Season Ended) 2024 02/14/2008 GFR 09/02/2024 09/03/2023, 06/04, 06/04/2021, Additional history exists Albumin/Creatinine Ratio 06/19/2025 06/19/2022, 05/2021 DTaP,Tdap,and Td Vaccines (3 - Td or Tdap) 11/06/2031 11/05/2021, 10/16/2021 (Declined) VITAMIN D LEVEL ONCE IN A LIFETIME-USE SMARTSET# [id number] Completed 06/28/2020, 12/28/2018, 08/10/2017 GARDASIL-HPV IMMUNIZATION SERIES [...] filedocumented as of this encounter Care Teams Development Engineer Relationship Specialty Start Date End Date lFip August JOCELYNE Foster [address] [place], [place] [address] PCP - General Physician Computer Operator 09/18/21 documented as of this encounter
--- OUTSIDE RECORDS SUMMARY | 2024-02-06 05:09 | External Medical Summary | Summary of Care ---
Author Name Unknown Organization [facility] Address [address] [facility] [address] Phone [phone] Care Team Providers Care Clinical Assoc Name Role Phone Molly Castelan PA-C Primary Care Provider [phone] Reason for Visit * Reason Onset Date Comments Advice 08/07/2023 Appointment Encounter Details Date Type Department Care Team (Late st Contact Info) Description 08/07/2023 Telephone Family Practice [facility] [place] [address] [facility] [place] [address] Molly Castelan PA-C [address] [facility] [place] [address] Advice (Appointment ) Allergies Active Allergy Reactions Criticality Noted Date Comments Novocain 02/22/2010 Weird and scary sensation. Was given oxygen documented as of this encounter (statuses as of 11/06/2023) Medications Medication Sig Dispensed Refills Start Date End Date Status VITAMIN D 1000 UNIT PO CAPS 1 capsule daily 30 Cap 11 12/20/2009 4 Discontinue d(Medicatio n List Clean Up) VITAMIN C 500 MG PO CHEW 1 TABLET DAILY 1 Tab 1 06/17/2011 4 Discontinue d(Medicatio n List Clean Up) Ferrous Sulfate 325 (65 Fe) MG Oral Tablet Delayed Release Take 1 Tablet by mouth in the morning and 1 Tablet at noon and 1 Tablet in the evening. Take with meals. 4 Discontinue d(Medicatio n List Clean Up) Vitamin B12 100 MCG Oral Tablet Take by mouth. 4 Discontinue d(Medicatio n List Clean Up) Albuterol Sulfate HFA 108 (90 Base) MCG/ACT Inhalation Aerosol SolutionIndication s:Acute bronchitis, antibiotics not indicated inhale 2 puffs by mouth every 4 hours if needed cough wheezing 54 g 1 05/30/2021 4 Discontinue d(Medicatio n List Clean Up) Fluticasone Propionate 50 MCG/ACT Nasal Suspension (Flonase)Indicatio ns:Chronic rhinitis instill 1 spray into each nostril once daily 48 g 1 05/30/2021 4 Discontinue d(Medicatio n List Clean Up) Ipratropium [place] 0.03 % Nasal Solution (Atrovent)Indicati ons:Chronic rhinitis 2 sprays in each nostril twice daily 30 mL 5 05/30/2021 4 Discontinue d(Medicatio n List Clean Up) Betamethasone Dipropionate 0.05 % External Cream (Diprosone)Indicat ions:Eczema, unspecified type Apply topically to affected area 2 times a day . To affected area. 45 g 3 05/30/2021 4 Discontinue d(Medicatio n List Clean Up) Metoprolol Succinate ER 50 MG Oral Tablet Extended Release 24 Hour (toPROL XL)Indications:HTN , goal below 140/90 take 1 tablet by mouth once daily 100 Tablet 3 06/03/2022 4 Discontinue d(Medicatio n List Clean Up) Baclofen 10 MG Oral Tablet (Lioresal)Indicati ons:Piriformis syndrome of right side,Sciatica of right side Take 1 Tablet by mouth every evening. As needed for pain, spasm 15 Tablet 06/19/2022 4 Discontinue d(Medicatio n List Clean Up) hydrOXYzine HCl 10 MG Oral Tablet (Atarax)Indication s:CLIFFORD (generalized anxiety disorder) take 1 tablet by mouth every 6 hours if needed for anxiety Strength: 10 mg 40 Tablet 2 08/05/2022 4 Discontinue d(Medicatio n List Clean Up) Omeprazole 20 MG Oral Capsule Delayed Release (PriLOSEC)Indicati ons:Gastroesophage al reflux disease without esophagitis take 1 capsule by mouth once daily 90 Capsule 2 10/11/2022 4 Discontinue d(Medicatio n List Clean Up) Montelukast Sodium 10 MG Oral Tablet (Singulair) take 1 tablet by mouth once daily 90 Tablet 2 11/06/2022 4 Discontinue d(Medicatio n List Clean Up) Sertraline HCl 50 MG Oral Tablet (Zoloft) Take 1 Tablet by mouth in the morning. 90 Tablet 3 07/22/2023 4 Discontinue d(Medicatio n List Clean Up) documented as of this encounter (statuses as of 11/06/2023) Active Problems Problem Noted Date Diagnosed Date Borderline personality disorder 05/08/2020 Age-related osteoporosis wit hout current pathological fracture 02/27/2020 HTN, goal below 140/90 12/15/2019 CLIFFORD (generalized anxiety disorder) 07/12/2018 Major depressive disorder, recurrent episode, mo derate 10/14/2006 documented as of this encounter (statuses as of 11/06/2023) Resolved Problems Problem Noted Date Diagnosed Date [...] as of this encounter (statuses as of 11/06/2023) Immunizations Name Administration Dates Next Due Pneumococcal [...] encounter Miscellaneous Notes * Telephone Encounter - Sara Wise OSA - 08/07/2023 11:12 AM EDT Reason for patient's call: Appointment Caller was transferred to [facility] at the clinic. documented in this encounter Plan of Treatment Upcoming Encounters Date Type Department Care Team (Late st Contact Info) Description 01/05/2024 10:20 AM EDT Office Visit Family Practice [facility] [address] [place] [address] Molly Castelan PA-C [address] [facility] [place] [address] 07/22/2024 1:00 PM EDT Office Visit Neurology [facility] [address] [place] [address] Josesito Willis, DO [address] [place] [address] Health Maintenance Due Date Last Done Comments Pneumococcal Vaccine: 65+ Years (2 of 2 - PCV) 02/13/2009 02/14/2008 *BISPHONATE OR OTHER ACCEPTABLE MEDICATION NEEDED FOR OSTEOPOROSIS (REFER TO SMARTSET #1146) 04/14/2020 DXA Scan 02/21/2022 02/22/2020, 10/2016, 03/12/2010, Additional history exists COVID-19 Vaccine (1 - 2022- season) 2023 Depression Monitoring 06/19/2023 06/19/2022 Influenza Vaccine (FLU shot) (#1) 2024 02/14/2008 GFR 09/02/2024 09/03/2023, 06/04, 06/04/2021, Additional history exists Albumin/Creatinine Ratio 06/19/2025 06/19/2022, 05/2021 DTaP,Tdap,and Td Vaccines (3 - Td or Tdap) 11/06/2031 11/05/2021, 10/16/2021 (Declined) VITAMIN D LEVEL ONCE IN A LIFETIME-USE SMARTSET# [id number] Completed 06/28/2020, 12/28/2018, 08/10/2017 HPV (Gardasil) Vaccine [...] filedocumented as of this encounter Care Teams Clinical Assoc Relationship Specialty Start Date End Date Flip Molly Kristin, JOCELYNE [address] [place], [place] [address] PCP - General Physician Mechanic Foreman 09/18/21 documented as of this encounter
--- OUTSIDE RECORDS SUMMARY | 2024-02-06 05:09 | External Medical Summary | Summary of Care ---
Author Name Unknown Organization [facility] Address [address] [place] [address] Phone [phone] Care Team Providers Care Caterpillar Mechanic Name Role Phone FlipMolly JOCELYNE Primary Care Provider [phone] Reason for Visit * Reason Comments Outpatient Testing Encounter Details Date Type Department Care Team (Late st Contact Info) Description 09/03/2023 4:00 PM EDT Laboratory Laboratory [facility] [address] [place] [address] [place], Lab [address]en[address] [place] [address] HTN, goal below 140/90; Confusion Allergies Active Allergy Reactions Criticality Noted Date Comments Novocain 02/22/2010 Weird and scary sensation. Was given oxygen documented as of this encounter (statuses as of 09/03/2023) Medications Medication Sig Dispensed Refills Start Date [...] as of this encounter (statuses as of 09/03/2023) Active Problems Problem Noted Date Diagnosed Date Borderline personality disorder 05/08/2020 Age-related osteoporosis wit hout current pathological fracture 02/27/2020 HTN, goal below 140/90 12/15/2019 CLIFFORD (generalized anxiety disorder) 07/12/2018 Major depressive disorder, recurrent episode, mo derate 10/14/2006 documented as of this encounter (statuses as of 09/03/2023) Resolved Problems Problem Noted Date Diagnosed Date [...] as of this encounter (statuses as of 09/03/2023) Immunizations Name Administration Dates Next Due Pneumococcal [...] 10:20 AM EDT Office Visit Family Practice [facility] [address] [facility] [address] Molly Castelan PA-C [address] [facility] [place] [address] 07/22/2024 1:00 PM EDT Office Visit Neurology [facility] [address] [facility] [place] [address] Josesito Willis, DO [address], [place] [phone] Pending Results Name Type Priority Associated Diagnoses Date /Time RENAL FUNCTION PANEL Lab Routine HTN, goal below 140/90 09/03/2023 3:52 PM EDT CBC Lab Routine Confusion 09/03/2023 4:20 PM EDT Health Maintenance Due Date Last Done Comments Pneumococcal Vaccine: 65+ Years (2 of 2 - PCV) 02/13/2009 02/14/2008 *BISPHONATE OR OTHER ACCEPTABLE MEDICATION NEEDED FOR OSTEOPOROSIS (REFER TO SMARTSET #1146) 04/14/2020 DXA Scan 02/21/2022 02/22/2020, 12/10/2016, 03/12/2010, Additional history exists COVID-19 Vaccine ( season) 2023 GFR 06/19/2023 06/19/2022, 05/2021, 06/28/2020, Additional history exists Influenza Vaccine (FLU shot) (Season Ended) 2024 02/14/2008 Albumin/Creatinine Ratio 06/19/2025 06/19/2022, 05/2021 DTaP,Tdap,and Td Vaccines (3 - Td or Tdap) 11/06/2031 11/05/2021, 10/16/2021 (Declined) VITAMIN D LEVEL ONCE IN A LIFETIME-USE SMARTSET# [id number] Completed 06/28/2020, 12/28/2018, 08/10/2017 GARDASIL-HPV IMMUNIZATION SERIES [...] as of this encounter Visit Diagnoses Diagnosis HTN, goal below 140/90 Unspecified essential hypertension Confusion Unspecified psychosis documented in this encounter Care Teams Caterpillar Mechanic Relationship Specialty Start Date End Date Flip Molly JOCELYNE Foster [address] [place] [address] PCP - General Physician Admiralty Lawyer 09/18/21 documented as of this encounter
--- OUTSIDE RECORDS SUMMARY | 2024-02-06 05:09 | External Medical Summary | Summary of Care ---
Author Name Unknown Organization [facility] Address [address] [place] [address] Phone [phone] Care Team Providers Care Anesthesia Associate Name Role Phone Molly Castelan PA-C Primary Care Provider [phone] Reason for Referral * Evaluate & Treat - Unlimited Visits (Within 30 days (routine)) - Authorized Specialty Diagnoses / Procedures Referred By Meenakshi collazo Referred To Contact Neurology Diagnoses Memory loss Molly Castelan PA-C [address] [place] [address] Referral ID Status Reason Start Date Expiration Date Visits Requested Visits Authorized [id number] Authorized Specialty Services Required 09/03/[phone] Question Answer Referral Priority Within 30 days (routine) Where should this appointment be scheduled? [facility] Is this referral being placed for insurance purposes ONLY No, patient needs appointment [facility] NEUROLOGY REFERRAL QUESTIONS Memory/Cognition * Evaluate & Treat - Unlimited Visits (Within 30 days (routine)) - Authorized Specialty Diagnoses / Procedures Referred By Meenakshi collazo Referred To Contact Psychiatry Diagnoses CLIFFORD (generalized anxiety disorder) Borderline personality disorder (HCC) Molly Castelan PA-C [address] [place] [address] Referral ID Status Reason Start Date Expiration Date Visits Requested Visits Authorized [id number] Authorized Specialty Services Required 09/03/[phone] Question Answer Referral Priority Within 30 days (routine) Where should this appointment be scheduled? [facility] Is this referral for medication management? Yes Reason for Referral Anxiety Reason for Visit * Reason Comments Physical-Exam Anxiety Rash back Encounter Details Date Type Department Care Team (Late st Contact Info) Description 09/03/2023 2:00 PM EDT Office Visit Family Practice [facility] [employer] [address] [facility] [place] [address] Molly Castelan PA-C [address] [facility] [place] [address] HTN, goal below 140/90*; CLIFFORD (generalized anxiety disorder); Age-related osteoporosis without current pathological fracture; Borderline personality disorder (HCC); Confusion; Memory loss; Major depressive disorder, recurrent episode, moderate (HCC) Allergies Active Allergy Reactions Criticality Noted Date [...] Active Escitalopram Oxalate 5 MG Oral Tablet (Lexapro)Indicatio ns:CLIFFORD (generalized anxiety disorder) Take 1 Tablet by mouth in the morning. 30 Tablet 5 09/03/2023 Active VITAMIN D 1000 UNIT PO CAPS 1 [...] Tablet in the evening. Take with meals. 0 4 Discontinue d(Medicatio n List Clean Up) Vitamin B12 100 MCG Oral Tablet Take by mouth. 0 4 Discontinue d(Medicatio n List Clean Up) [...] Discontinue d(Medicatio n List Clean Up) Ipratropium [place] 0.03 % Nasal Solution (Atrovent)Indicati ons:Chronic rhinitis [...] As needed for pain, spasm 15 Tablet 0 06/19/2022 4 Discontinue d(Medicatio n List Clean [...] Overview: Per Lipid Taxonomy. Mixed dyslipidemia 07/19/2008 Overview: Per Lipid Taxonomy. NONALLERGIC RHINITIS 03/23/2007 [...] Sign Reading Time Taken Comments Blood Pressure 142/72 09/03/2023 2:00 PM EDT Pulse 102 09/03/2023 2:00 PM EDT Temperature 37.4 C (99.4 F) 09/03/2023 2:00 PM ED T Respiratory Rate 18 09/03/2023 2:00 PM EDT Oxygen Saturation 97% 09/03/2023 2:00 PM EDT Inhaled Oxygen Concentration - - Weight 51.3 kg (113 lb) 09/03/2023 2:00 PM EDT Height 145.6 cm (4' 9.32") 09/03/2023 2:00 PM ED T Body Mass Index 24.18 09/03/2023 2:00 PM EDT documented in this encounter Progress Notes * Molly Castelan PA-C - 09/03/2023 2:43 PM EDT Images from the original note were not included. History of Present Illness Dulce Bhandari is a 82 year old female that presents for Physical-Exam, Anxiety, and Rash (back) Patient is an 82 year old female who presents for a follow up. States she is very anxious. Not taking her medications; stopped her zoloft, stopped most of her medications. Very unhappy with her current living situation where she is lived for the last several years. Feelsher sons are not very present in her life. Still has her CT which she is very fond of. Still has issues related to her daughter's 50 some years ago. Talks about her ex-. Physical Exam Vitals: 09/03/23 1400 Temp: 37.4 C (99.4 F) Pulse: 102 Resp: 18 SpO2: 97% BP: 142/72 BMI: 24.18 BP Readings from Last 3 Encounters: 09/03/23 142/72 08/27/22 146/70 08/13/22 160/72 Wt Readings from Last 3 Encounters: 09/03/23 51.3 kg (113 lb) 08/13/22 54.2 kg (119 lb 6.4 oz) 06/19/22 54.2 kg (119 lb 6.4 oz) General: alert, healthy, well nourished, well developed, anxious, and mild distress Head: Normocephalic, No masses, lesions, tenderness or abnormalities Eye Exam: PERRLA, extraocular movements intact, conjunctiva are pink and non- injected, sclera clear Ears: External ears normal, Canals clear, TM's Normal Oropharynx: no exudate, no erythema, lips, buccal mucosa, and tongue normal, and mucous membranes are moist Neck: supple, no adenopathy, no bruits, thyroid normal size, non-tender, without nodularity Heart: regular rate & rhythm, no murmur, and no gallops Lungs: chest symmetric with normal AP diameter, no chest deformities noted, normal respiratory rateand rhythm, no chest wall tenderness, diaphragmatic excursion normal, lungs clear to auscultation Abdomen: abdomen soft, non-tender, normal bowel sounds, no masses or organomegaly, no rebound or guarding, no CVA tenderness, no bladder distention identified, and no bruits Back: back symmetric, no curvature, no costovertebral angle tenderness, no tenderness to percussionor palpation Extremities: less than 2 second capillary refill, no joint deformities, effusion, or inflammation, no edema, no clubbing, no cyanosis Skin: skin color, texture, turgor are normal, area of dermatitis on her back. I have reviewed the following results: None Assessment and Plan HTN, goal below 140/90 (Primary) - RENAL FUNCTION PANEL; Future; Expected date: 09/03/2023 - URINALYSIS, REFLEX TO MICROSCOPIC; Future; Expected date: 09/03/2023 - CULTURE, URINE, QUANTITATIVE CLIFFORD (generalized anxiety disorder) - ADULT/PEDS PSYCHIATRY REFERRAL OP - Escitalopram Oxalate 5 MG Oral Tablet (Lexapro); Take 1 Tablet by mouth in the morning. Age-related osteoporosis without current pathological fracture Borderline personality disorder (HCC) - ADULT/PEDS PSYCHIATRY REFERRAL OP Confusion - CBC; Future; Expected date: 09/03/2023 - BASIC METABOLIC PANEL; Future; Expected date: 09/03/2023 Memory loss - NEUROLOGY REFERRAL OP Major depressive disorder, recurrent episode, moderate (HCC) Other orders - Triamcinolone Acetonide 0.1 % External Cream (Aristocort); Apply topically to affected area 2 times a day. To affected area. Follow Up: Return in about 4 months (around 01/04/2024) for Clinic Visit. | For: Clinic Visit | Check-out note: Schedule with psychiatry, neurology Wrap-Up Time: I spent a total of 40-54 minutes (exact time 47 mins) on the date of service in preparation, delivery, and documentation of the care provided to Dulce Bhandari excluding any time spent in the performance of separately billed services. documented in this encounter Nursing Notes * Rossi Woodall LPN - 09/03/2023 1:59 PM EDT Dulce Bhandari presents for annual physical exam. Medications & HM reviewed. Patient reports terrible anxiety and she has a rash on her back that she'd like checked out. Pt refused to complete the mini mental status exam. documented in this encounter Plan of Treatment Upcoming Encounters Date Type Department Care Team (Late st Contact Info) Description 09/03/2023 4:00 PM EDT Laboratory Laboratory [facility] [place] [address] [facility] [place] [id number] [facility] [address] [facility] [place] [address] Arrived 01/05/2024 10:20 AM EDT Office Visit Family Practice [facility] [place] [address] [facility] [place] [address] Molly Castelan PA-C [address] [facility] [place] [address] 07/22/2024 1:00 PM EDT Office Visit Neurology [facility] [place] [address] [facility] [place] [address] Josesito Willis, DO [address] [place] [address] Scheduled Orders Name Type Priority Associated Diagnoses Orde r Schedule RENAL FUNCTION PANEL Lab Routine HTN, goal below 140/90 Expected: 09/03/2023 (Approximate), Expires: 09/02/2024 CBC Lab Routine Confusion Expected: 09/03/2023 (Approximate), Expires: 09/02/2024 BASIC METABOLIC PANEL Lab Routine Confusion Expected: 09/03/2023 (Approximate), Expires: 09/02/2024 URINALYSIS, REFLEX TO MICROSCOPIC Lab Routine HTN, goal below 140/90 Expected: 09/03/2023, Expires: 09/02/2024 CULTURE, URINE, QUANTITATIVE Lab Routine HTN, goal below 140/90 Ordered: 09/03/2023 Scheduled Referrals Name Type Priority Associated Diagnoses Orde r Schedule ADULT/PEDS PSYCHIATRY REFERRAL OP Referral Within 30 days (routine) CLIFFORD (generalized anxiety disorder) Borderline personality disorder (HCC) Ordered: 09/03/2023 NEUROLOGY REFERRAL OP Referral Within 30 days (routine) Memory loss Ordered: 09/03/2023 Health Maintenance Due Date Last Done Comments Pneumococcal Vaccine: 65+ Years (2 of 2 - PCV) 02/13/2009 02/14/2008 *BISPHONATE OR OTHER ACCEPTABLE MEDICATION NEEDED FOR OSTEOPOROSIS (REFER TO SMARTSET #1146) 04/14/2020 DXA Scan 02/21/2022 02/22/2020, 10/2016, 03/12/2010, Additional history exists COVID-19 Vaccine ( - 2022- season) 2023 GFR 06/19/2023 06/19/2022, 05/2021, 06/28/2020, Additional history exists Influenza Vaccine (FLU shot) (Season Ended) 2024 02/14/2008 Albumin/Creatinine Ratio 06/19/2025 06/19/2022, 05/2021 DTaP,Tdap,and Td Vaccines (3 - Td or Tdap) 11/06/2031 11/05/2021, 10/16/2021 (Declined) VITAMIN D LEVEL ONCE IN A LIFETIME-USE SMARTSET# [id number] Completed 06/28/2020, 12/28/2018, 08/10/2017 GARDASIL-HPV IMMUNIZATION SERIES [...] encounter Visit Diagnoses Diagnosis HTN, goal below 140/90- Primary Unspecified essential hypertension CLIFFORD (generalized anxiety disorder) Generalized anxiety disorder Age-related osteoporosis without current pathological fracture Senile osteoporosis Borderline personality disorder (HCC) Borderline personality disorder Confusion Unspecified psychosis Memory loss Major depressive disorder, recurrent episode, moderate (HCC) Major depressive disorder, recurrent episode, moderate documented in this encounter Care Teams Anesthesia Associate Relationship Specialty Start Date End Date Flip August JOCELYNE Foster [address] [place] [address] PCP - General Physician Sales Representative Business Courses 09/18/21 documented as of this encounter
--- OUTSIDE RECORDS SUMMARY | 2024-02-06 05:09 | External Medical Summary | Summary of Care ---
Author Name Unknown Organization [facility] Address [address] [place] [address] Phone [phone] Care Team Providers Care Human Resource Adviser Name Role Phone FlipMolly JOCELYNE Primary Care Provider [phone] Reason for Visit * Reason Comments Outpatient Testing Encounter Details Date Type Department Care Team (Late st Contact Info) Description 09/03/2023 4:00 PM EDT Laboratory Laboratory [facility] [address] [place] [address] [place], [address] [place] [address] HTN, goal below 140/90; Confusion Allergies Active [...] 10:20 AM EDT Office Visit Family Practice [facility] [address] [facility] [place] [address] Molly Castelan PA-C [address] [facility] [place] [address] 07/22/2024 1:00 PM EDT Office Visit Neurology [facility] [address] [facility] [place] [address] Josesito Willis, DO [address] [place], [place] [phone] Pending Results Name Type Priority Associated Diagnoses [...] D LEVEL ONCE IN A LIFETIME-USE SMARTSET# [id number] Completed 06/28/2020, 12/28/2018, 08/10/2017 GARDASIL-HPV IMMUNIZATION SERIES [...] psychosis documented in this encounter Care Teams Human Resource Adviser Relationship Specialty Start Date End Date Flip Molly JOCELYNE Foster [address] [place] [address] PCP - General Physician Backup Operator 09/18/21 documented as of this encounter
--- OUTSIDE RECORDS SUMMARY | 2024-02-06 05:09 | External Medical Summary | Summary of Care ---
Author Name Unknown Organization [facility] Address [address] [place] [address] Phone [phone] Care Team Providers Care Access Analyst Name Role Phone FlipMolly JOCELYNE Primary Care Provider [phone] Reason for Visit * Reason Comments Outpatient Testing Encounter Details Date Type Department Care Team (Late st Contact Info) Description 09/03/2023 4:00 PM EDT Laboratory Laboratory [facility] [address] [place] [address] [place], Lab Scenery [address] [place] [address] HTN, goal below 140/90; Confusion Allergies Active [...] 10:20 AM EDT Office Visit Family Practice [facility] [address] [place] [address] Molly Castelan PA-C [address] [facility] [place] [address] 07/22/2024 1:00 PM EDT Office Visit Neurology [facility] [address] [facility] [place] [address] Josesito Willis, DO [address] [place], [place] [phone] Pending Results Name Type Priority Associated Diagnoses Date /Time RENAL FUNCTION PANEL Lab Routine HTN, goal below 140/90 09/03/2023 3:52 PM EDT CBC Lab Routine Confusion 09/03/2023 3:52 PM EDT Health Maintenance Due Date Last [...] D LEVEL ONCE IN A LIFETIME-USE SMARTSET# [id number] Completed 06/28/2020, 12/28/2018, 08/10/2017 GARDASIL-HPV IMMUNIZATION SERIES [...] psychosis documented in this encounter Care Teams Access Analyst Relationship Specialty Start Date End Date Flip Molly JOCELYNE Foster [address] [place] [address] PCP - General Physician Silk Screen Printer Machine 09/18/21 documented as of this encounter
--- OUTSIDE RECORDS SUMMARY | 2024-02-06 05:09 | External Medical Summary | Summary of Care ---
Author Name Unknown Organization [facility] Address [address] [place] [address] Phone [phone] Care Team Providers Care Pathology Laboratory Director Name Role Phone FlipMolly Kristin CASANOVA Primary Care Provider [phone] Reason for Visit * Reason Onset Date Comments Appointment 08/07/2023 Encounter Details Date Type Department Care Team (Late st Contact Info) Description 08/07/2023 Telephone [facility], [place] [address] [place], [place] [phone] Services, Scheduling [address] [place] [address] Appointment Allergies Active Allergy Reactions Criticality Noted Date Comments Novocain 02/22/2010 Weird and scary sensation. Was given oxygen documented as of this encounter (statuses as of 08/27/2023) Medications Medication Sig Dispensed Refills Start Date End Date Status VITAMIN D 1000 UNIT PO CAPS 1 capsule daily 30 Cap 11 12/20/2009 Active VITAMIN C 500 MG PO CHEW 1 TABLET DAILY 1 Tab 1 06/17/2011 Active Ferrous Sulfate 325 (65 Fe) MG Oral Tablet Delayed Release Take 1 Tablet by mouth in the morning and 1 Tablet at noon and 1 Tablet in the evening. Take with meals. 0 Active Vitamin B12 100 MCG Oral Tablet Take by mouth. 0 Active Albuterol Sulfate HFA 108 (90 Base) MCG/ACT Inhalation Aerosol SolutionIndications: Acute bronchitis, antibiotics not indicated inhale 2 puffs by mouth every 4 hours if needed cough wheezing 54 g 1 05/30/2021 Active Fluticasone Propionate 50 MCG/ACT Nasal Suspension (Flonase)Indications :Chronic rhinitis instill 1 spray into each nostril once daily 48 g 1 05/30/2021 Active Ipratropium [place] 0.03 % Nasal Solution (Atrovent)Indication s:Chronic rhinitis 2 sprays in each nostril twice daily 30 mL 5 05/30/2021 Active Betamethasone Dipropionate 0.05 % External Cream (Diprosone)Indicatio ns:Eczema, unspecified type Apply topically to affected area 2 times a day . To affected area. 45 g 3 05/30/2021 Active Metoprolol Succinate ER 50 MG Oral Tablet Extended Release 24 Hour (toPROL XL)Indications:HTN, goal below 140/90 take 1 tablet by mouth once daily 100 Tablet 3 06/03/2022 Active Baclofen 10 MG Oral Tablet (Lioresal)Indication s:Piriformis syndrome of right side,Sciatica of right side Take 1 Tablet by mouth every evening. As needed for pain, spasm 15 Tablet 0 06/19/2022 Active hydrOXYzine HCl 10 MG Oral Tablet (Atarax)Indications: CLIFFORD (generalized anxiety disorder) take 1 tablet by mouth every 6 hours if needed for anxiety Strength: 10 mg 40 Tablet 2 08/05/2022 Active Omeprazole 20 MG Oral Capsule Delayed Release (PriLOSEC)Indication s:Gastroesophageal reflux disease without esophagitis take 1 capsule by mouth once daily 90 Capsule 2 10/11/2022 Active Montelukast Sodium 10 MG Oral Tablet (Singulair) take 1 tablet by mouth once daily 90 Tablet 2 11/06/2022 Active Sertraline HCl 50 MG Oral Tablet (Zoloft) Take 1 Tablet by mouth in the morning. 90 Tablet 3 07/22/2023 Active documented as of this encounter (statuses as of 08/27/2023) Active Problems Problem Noted Date Diagnosed Date Borderline personality disorder 05/08/2020 Age-related osteoporosis wit hout current pathological fracture 02/27/2020 HTN, goal below 140/90 12/15/2019 Gastro-esophageal reflux disease without esophag itis 10/20/2019 CLIFFORD (generalized anxiety disorder) 07/12/2018 Major depressive disorder, recurrent episode, mo derate 10/14/2006 documented as of this encounter (statuses as of 08/27/2023) Resolved Problems Problem Noted Date Diagnosed Date Resolved Date Unspecified asthma, uncomplicated 05/30/2020 07/04/2020 Kidney disease, chronic, sta ge III (GFR [...] as of this encounter (statuses as of 08/27/2023) Immunizations Name Administration Dates Next Due Pneumococcal [...] encounter Miscellaneous Notes * Telephone Encounter - Elvin Harris OSA - 08/27/2023 10:08 AM EDT Patient transferred to our department this morning in regard to psychiatry referral on patient chart. After getting connected with patient and discussing options for our department, she did not wish to move forward with schedule. I also, offered a psychology appointment at the [place] location and patient was not interested in driving to [place]. Patient wanted to be seen sooner at PCP office, I did attempt to r/s a sooner appointment with provider but there was no access to any sooner appointment I then transferred patient to the scheduling line for primary care and spoke with Earlene who is going to look to help patient obtain a sooner appointment at the PCP location. During our call patient was very up and down crying and then becoming calm. She did express that she was not having thoughts of harming herself but was very anxious and did not know how to handle life situations that were occurring. She expressed her ex husbands had just and he is to be coming back to [place] which is very overwhelming for her because she wants her back. I attempted multiple times to help get patient set up with psychology for someone to speak with but she refused the location and did not want at home video only telephonic which we do not have access too. I have attached Dr. Castelan, patients PCP in this encounter to give an update on patient. * Telephone Encounter - Elvin Harris OSA - 08/07/2023 1:03 PM EDT Patient calling back from message left, I reviewed TE with her in regard to no telephonic appointments. Patient is not interested in video appointments at this time. She reached out to someone outside of [facility]. * Telephone Encounter - Carrie Navas OSA - 08/07/2023 12:27 PM EDT LMOM. Patient had called the psychiatry dept earlier looking for an appointment for adult psychology by telephone call. I explained unfortunately we only provider video or in person at this time. I had messaged my [employer] about this and reached out to ops and unfortunately she is only ableto do video or in person. documented in this encounter Plan of Treatment Upcoming Encounters Date Type Department Care Team (Late st Contact Info) Description 09/03/2023 2:00 PM EDT Office Visit Family Practice [facility] [address] [place] [address] Molly Castelan PA-C [address] [place] [address] Health Maintenance Due Date Last Done Comments [...] D LEVEL ONCE IN A LIFETIME-USE SMARTSET# [id number] Completed 06/28/2020, 12/28/2018, 08/10/2017 GARDASIL-HPV IMMUNIZATION SERIES [...] filedocumented as of this encounter Care Teams Pathology Laboratory Director Relationship Specialty Start Date End Date Flip August JOCELYNE Foster [address] [place] [address] PCP - General Physician Packer Operator Automatic 09/18/21 documented as of this encounter
--- OUTSIDE RECORDS SUMMARY | 2024-02-06 05:09 | External Medical Summary ---
Author Name Unknown Address Unknown Organization K09:[facility] [place] [address] Laboratory Report Ordering Provider Test Date Status 09/03/2023 16:20:18 Final Observation Date Value Abnormality Reference (Units ) Status WBC, Total 09/03/2023 16:20:18 5.20 4.00-10.8 0 (K/uL) Final RBC 09/03/2023 16:20:18 4.25 3.85-5.15 (M/uL) Final Hemoglobin 09/03/2023 16:20:18 12.8 12.0-15.3 (g/dL) Final HCT 09/03/2023 16:20:18 41.4 36.0-45.2 (%) Final MCV 09/03/2023 16:20:18 97.4 81.5-97.5 (fL) Final MCH 09/03/2023 16:20:18 30.1 27.0-34.0 (pg) Final MCHC 09/03/2023 16:20:18 30.9 32.0-36.0 (g/dL) Final RDW 09/03/2023 16:20:18 13.1 11.5-15.5 (%) Final Platelets 09/03/2023 16:20:18 267 140-400 (K /uL) Final MPV 09/03/2023 16:20:18 9.4 6.6-11.1 ( fL) Final Performing Location [facility] [address] [place] [id number]
--- OUTSIDE RECORDS SUMMARY | 2024-02-06 05:09 | External Medical Summary | Summary of Care ---
Author Name Unknown Organization [facility] Address [address] [place] [address] Phone [phone] Care Team Providers Care Automatic Gluing Machine Operator Name Role Phone Molly Castelan PA-C Primary Care Provider Reason for Referral * Evaluate & Treat - Unlimited Visits (Within 30 days (routine)) - Authorized Specialty Diagnoses / Procedures Referred By Meenakshi collazo Referred To Contact Dermatology Diagnoses Skin cancer screening Change of skin color Molly Castelan PA-C [address] [place] [address] Referral ID Status Reason Start Date Expiration Date Visits Requested Visits Authorized [id number] Authorized Specialty Services Required 11/30/2023 999 999 Question Answer Referral Priority Within 30 days (routine) Where should this appointment be scheduled? [facility] Are you referring the patient for Mohs Surgery and have a current positive skin cancer biopsy result? No What is the reason for the patient referral? Rash/Skin Check/Eval of Lesion or Mole Reason for Visit * Reason Onset Date Comments Referral 11/26/2023 Encounter Details Date Type Department Care Team (Late st Contact Info) Description 11/26/2023 Telephone [facility] [address] [place] [address] [address] Molly Castelan PA-C [address] [place] [address] [address] Referral Allergies Active Allergy Reactions Criticality Noted Date Comments Novocain 02/22/2010 Weird and scary sensation. Was given oxygen documented as of this encounter (statuses as of 11/30/2023) Medications Medication Sig Dispensed Refills Start Date [...] as of this encounter (statuses as of 11/30/2023) Active Problems Problem Noted Date Diagnosed Date Borderline personality disorder 05/08/2020 Age-related osteoporosis wit hout current pathological fracture 02/27/2020 HTN, goal below 140/90 12/15/2019 CLIFFORD (generalized anxiety disorder) 07/12/2018 Major depressive disorder, recurrent episode, mo derate 10/14/2006 documented as of this encounter (statuses as of 11/30/2023) Resolved Problems Problem Noted Date Diagnosed Date [...] as of this encounter (statuses as of 11/30/2023) Immunizations Name Administration Dates Next Due Pneumococcal [...] Telephone Encounter - Molly Castelan PA-C - 11/30/2023 6:47 PM EDT Referral signed. * Telephone Encounter - Rossi Woodall LPN - 11/30/2023 9:15 AM EDT Derm referral pended. Last PCP appointment:09/03/2023 (in office), 05/30/2020 (telemedicine) Next PCP appointment: 01/05/2024 * Telephone Encounter - Clara Lni OSA - 11/26/2023 3:46 PM EDT Has the patient been seen for this problem? (Y/N)?: yes If No, an appt needs to be scheduled before a referral will be placed (exception: proceed with referral request if referral request is for a yearly routine appointment with speciality) Patient Name: Dulce Bhandari Patient Primary care provider: Molly Castelan PA-C Does this need to be an insurance referral (Y/N)?: unsure If Yes, does the insurance referral need to be placed into the [employer] system? Name of preferred specialist: Dermatology Type of specialist: Dermatology Location of specialist: [facility] if available Specialist's Phone #: n/a Specialist's Fax #: n/a Reason for visit: skin is a "mess" on her legs, blotchy skin, darkening skin, Date of visit: needs a referral before scheduling. documented in this encounter Plan of Treatment Upcoming Encounters Date Type Department Care Team (Late st Contact Info) Description 01/05/2024 10:20 AM EDT Office Visit Family Practice [address] [address] Molly Castelan PA-C [address] [facility] [place] [address] 07/22/2024 1:00 PM EDT Office Visit Neurology [facility] [place] [address] [facility] [place] [address] Lizzy Willisflakitawilbur Haleigh, DO [address] [place] [address] Scheduled Referrals Name Type Priority Associated Diagnoses Orde r Schedule DERMATOLOGY REFERRAL OP Referral Within 30 days (routine) Skin cancer screening Change of skin color Ordered: 11/30/2023 Health Maintenance Due Date Last Done Comments Pneumococcal Vaccine: 65+ Years (2 of 2 - PCV) 02/13/2009 02/14/2008 *BISPHONATE OR OTHER ACCEPTABLE MEDICATION NEEDED FOR OSTEOPOROSIS (REFER TO SMARTSET #1146) 04/14/2020 DXA Scan 02/21/2022 02/22/2020, 10/2016, 03/12/2010, Additional history exists COVID-19 Vaccine (2022- season) 2023 Depression Monitoring 06/19/2023 06/19/2022 Influenza Vaccine (FLU shot) (#1) 2024 02/14/2008 GFR 09/02/2024 09/03/2023, 06/04, 06/04/2021, Additional history exists Albumin/Creatinine Ratio 06/19/2025 06/19/2022, 05/2021 DTaP,Tdap,and Td Vaccines (3 - Td or Tdap) 11/06/2031 11/05/2021, 10/16/2021 (Declined) VITAMIN D LEVEL ONCE IN A LIFETIME-USE SMARTSET# [id number] Completed 06/28/2020, 12/28/2018, 08/10/2017 HPV (Gardasil) Vaccine [...] as of this encounter Visit Diagnoses Diagnosis Change of skin color- Primary Skin cancer screening Screening for malignant neoplasm of the skin documented in this encounter Care Teams Automatic Gluing Machine Operator Relationship Specialty Start Date End Date Flip Molly JOCELYNE Foster [address] [place] [address] [place] [address] PCP - General Physician Sole Sewer Hand 09/18/21 documented as of this encounter
--- OUTSIDE RECORDS SUMMARY | 2024-02-06 05:09 | External Medical Summary | Summary of Care ---
Author Name Unknown Organization [facility] Address [address] [facility] [address] Phone [phone] Care Team Providers Care Charge Master Specialist Name Role Phone Molly Castelan PA-C Primary Care Provider [phone] Reason for Visit * Reason Onset Date Comments FYI 09/07/2023 Encounter Details Date Type Department Care Team (Late st Contact Info) Description 09/07/2023 Telephone Family Practice [facility] [place] [address] [facility] [place] [address] Molly Castelan PA-C [address] [facility] [place] [address] FYI Allergies Active Allergy Reactions Criticality Noted Date Comments Novocain 02/22/2010 Weird and scary sensation. Was given oxygen documented as of this encounter (statuses as of 09/09/2023) Medications Medication Sig Dispensed Refills Start Date [...] as of this encounter (statuses as of 09/09/2023) Active Problems Problem Noted Date Diagnosed Date Borderline personality disorder 05/08/2020 Age-related osteoporosis wit hout current pathological fracture 02/27/2020 HTN, goal below 140/90 12/15/2019 CLIFFORD (generalized anxiety disorder) 07/12/2018 Major depressive disorder, recurrent episode, mo derate 10/14/2006 documented as of this encounter (statuses as of 09/09/2023) Resolved Problems Problem Noted Date Diagnosed Date [...] as of this encounter (statuses as of 09/09/2023) Immunizations Name Administration Dates Next Due Pneumococcal [...] [facility] [address] [place] [address] [address] Molly Castelan PA-C [address] [place] [address] [address] 07/22/2024 1:00 PM EDT Office Visit [facility] [address] [place] [address] [address] Josesito Willis, DO [address] [facility] [place] [address] Health Maintenance Due Date Last Done Comments [...] D LEVEL ONCE IN A LIFETIME-USE SMARTSET# [id number] Completed 06/28/2020, 12/28/2018, 08/10/2017 GARDASIL-HPV IMMUNIZATION SERIES [...] filedocumented as of this encounter Care Teams Charge Master Specialist Relationship Specialty Start Date End Date Flip August JOCELYNE Foster [address] [place], [place] [address] PCP - General Physician Photo Technician 09/18/21 documented as of this encounter
--- OUTSIDE RECORDS SUMMARY | 2024-02-06 05:09 | External Medical Summary | Summary of Care ---
Author Name Unknown Organization [facility] Address [address] [place] [address] Phone [phone] Care Team Providers Care Gas Regulator Repairer Helper Name Role Phone FlipMolly JOCELYNE Primary Care Provider [phone] Reason for Visit * Reason Comments Outpatient Testing Encounter Details Date Type Department Care Team (Late st Contact Info) Description 09/03/2023 4:00 PM EDT Laboratory Laboratory [facility] [address] [place] [address] [place], Lab Scenery [address] [place] [address] HTN, goal below 140/90; Confusion Allergies Active [...] 10:20 AM EDT Office Visit Family Practice [facility] [address] [facility] [place] [address] Molly Castelan PA-C [address] [facility] [place] [address] 07/22/2024 1:00 PM EDT Office Visit Neurology [facility] [address] [facility] [place] [address] Josesito Willis, DO [address] [place], [place] [phone] Pending Results Name Type Priority Associated Diagnoses [...] D LEVEL ONCE IN A LIFETIME-USE SMARTSET# [id number] Completed 06/28/2020, 12/28/2018, 08/10/2017 GARDASIL-HPV IMMUNIZATION SERIES [...] psychosis documented in this encounter Care Teams Gas Regulator Repairer Helper Relationship Specialty Start Date End Date Flip Molly JOCELYNE [address] [place] [address] PCP - General Physician Independent Living Advisor 09/18/21 documented as of this encounter
--- OUTSIDE RECORDS SUMMARY | 2024-02-06 05:09 | External Medical Summary | Summary of Care ---
Author Name Unknown Organization [facility] Address [address] [place] [address] Phone [phone] Care Team Providers Care Catalog Library Assistant Name Role Phone FlipMolly JOCELYNE Primary Care Provider [phone] Reason for Visit * Reason Comments Outpatient Testing Encounter Details Date Type Department Care Team (Late st Contact Info) Description 09/03/2023 4:00 PM EDT Laboratory Laboratory [facility] [address] [place] [address] [place], Lab Scenery [address] [place] [address] HTN, goal below 140/90; Confusion Allergies Active [...] Visit Family Practice [facility] [address] [place] [address] Molly Castelan PA-C [address] [facility] [place] [address] 07/22/2024 1:00 PM EDT Office Visit Neurology [facility] [address] [facility] [place] [address] Josesito Willis, DO [address] [place], [place] [phone] Pending Results Name Type Priority Associated Diagnoses [...] D LEVEL ONCE IN A LIFETIME-USE SMARTSET# [id number] Completed 06/28/2020, 12/28/2018, 08/10/2017 GARDASIL-HPV IMMUNIZATION SERIES [...] psychosis documented in this encounter Care Teams Catalog Library Assistant Relationship Specialty Start Date End Date Flip Molly JOCELYNE [address] [place] [address] PCP - General Physician Talent Acquisition Associate 09/18/21 documented as of this encounter
--- OUTSIDE RECORDS SUMMARY | 2024-02-06 05:09 | External Medical Summary | Summary of Care ---
Author Name Unknown Organization [facility] Address [address] [facility] [address] Phone [phone] Care Team Providers Care Medical Technicians Name Role Phone Molly Castelan PA-C Primary Care Provider [phone] Reason for Visit * Reason Onset Date Comments FYI 08/27/2023 Encounter Details Date Type Department Care Team (Late st Contact Info) Description 08/27/2023 Telephone Family Practice [facility] [address] [facility] [place] [address] Molly Castelan PA-C [address] [facility] [place] [address] FYI Allergies Active Allergy Reactions Criticality Noted Date Comments Novocain 02/22/2010 Weird and scary sensation. Was given oxygen documented as of this encounter (statuses as of 11/26/2023) Medications No known medicationsdocumented as of this encounter (statuses as of 11/26/2023) Active Problems Problem Noted Date Diagnosed Date Borderline personality disorder 05/08/2020 Age-related osteoporosis wit hout current pathological fracture 02/27/2020 HTN, goal below 140/90 12/15/2019 CLIFFORD (generalized anxiety disorder) 07/12/2018 Major depressive disorder, recurrent episode, mo derate 10/14/2006 documented as of this encounter (statuses as of 11/26/2023) Resolved Problems Problem Noted Date Diagnosed Date [...] as of this encounter (statuses as of 11/26/2023) Immunizations Name Administration Dates Next Due Pneumococcal [...] encounter Miscellaneous Notes * Telephone Encounter - Earlene Figueroa, DEAN - 08/27/2023 10:40 AM EDT Good morning Received a call from Elvin from Psychology she informed me that Dulce, patient, was going througha lot mentally and Samara was trying her hardest to get her seen with them, but patient was refusing. I tried to speak but she talked the 35 minutes. I allowed Dulce to express herself. She kept saying she was not going to harm herself, because that is not who she is. She mentioned that she rather have a phone call from somebody. She stated if "August could call me that would be best." She went along in stating that she would not go to speak to someone if her X- Bill Barajas was not going with her. She also stated that someone needs to call him and tell himthat he needs to be with her and her family. And also that that had lost their 9 month old daughterSparkle, and they were divorce. She hung up the phone after 35 minutes. Please advise. If there are any questions, or concerns please call Dulce at [phone]. Number was verified by me and Elvin as well. Thank you. DEAN Polk documented in this encounter Plan of Treatment Upcoming Encounters Date Type Department Care Team (Late st Contact Info) Description 01/05/2024 10:20 AM EDT Office Visit Family Practice [facility] [address] [facility] [place] [address] Molly Castelan PA-C [address] [facility] [place] [address] 07/22/2024 1:00 PM EDT Office Visit Neurology [facility] [address] [facility] [place] [address] Josesito Willis, DO [address] [place] [address] Health Maintenance Due Date Last [...] D LEVEL ONCE IN A LIFETIME-USE SMARTSET# [id number] Completed 06/28/2020, 12/28/2018, 08/10/2017 HPV (Gardasil) Vaccine [...] filedocumented as of this encounter Care Teams Medical Technicians Relationship Specialty Start Date End Date Flip August JOCELYNE Foster [address] [place] [address] PCP - General Physician Cloth Tearer 09/18/21 documented as of this encounter
--- OUTSIDE RECORDS SUMMARY | 2024-02-06 05:09 | External Medical Summary ---
Author Name Unknown Address Unknown Organization K01:LABORATORY [facility] – [place] - [address] [place] [id number] Laboratory Report Ordering Provider Test Date Status 09/03/2023 15:52:00 Final Observation Date Value Abnormality Reference (Units ) Status BUN 09/03/2023 15:52:00 18 6-20 (mg/dL) Final Creatinine 09/03/2023 15:52:00 0.9 0.5-1.0 (mg/dL) Final Glomerular filtration rate/1.73 sq M.predicted [Volume Rate/Area] in Serum, Plasma or Blood by Creatinine-based formula (CKD-EPI) 09/03/2023 15:52:00 68 >=60 (mL/min) Final eGFR is calculated based on the CKD-EPI 2020 equation Sodium 09/03/2023 15:52:00 141 135-146 (m mol/L) Final Potassium 09/03/2023 15:52:00 4.2 3.5-5.1 (m mol/L) Final Cl 09/03/2023 15:52:00 104 98-107 (mm ol/L) Final CO2 09/03/2023 15:52:00 28 22-32 (mmo l/L) Final Anion gap 09/03/2023 15:52:00 9 7-15 (mmol /L) Final Glucose 09/03/2023 15:52:00 98 70-120 (mg /dL) Final Calcium 09/03/2023 15:52:00 9.5 8.4-10.2 ( mg/dL) Final Albumin 09/03/2023 15:52:00 4.4 3.8-5.0 (g /dL) Final Phosphate 09/03/2023 15:52:00 3.4 2.5-4.8 (m g/dL) Final Performing Location LABORATORY [facility] - [address] [place] [address]
--- NOTE | 2024-02-06 07:26 | XRay Report ---
XR humerus RT 2V CLINICAL HISTORY: Trauma COMPARISON: None FINDINGS: There are no fractures within the right humerus. Alignment of the right shoulder and elbow is anatomic. 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 IMPRESSION: No right humeral fractures. ACT 112: Negative or not required by law. Electronically signed by: Hong Pavon M.D. 02/06/2024 7:24 AM
[2024-02-06 08:24] LABS: Basophils # (auto) 0.02 K/uL (0.00-0.20); Basophils % (auto) 0.4 %; Eosinophils # (auto) 0.08 K/uL (0.00-0.50); Eosinophils % (auto) 1.4 %; Hematocrit (blood only) 37.8 % (37.0-47.0); Hemoglobin 12.3 g/dl (12.0-16.0); Immature Granulocytes # (auto) 0.02 K/uL (0.01-0.20); Immature Granulocytes % (auto) 0.4 %; Lymphocytes # (auto) 1.25 K/uL (1.20-3.40); Lymphocytes % (auto) 22.6 %; Mean Corpuscular Hemoglobin 30.9 pg (25.0-34.0); Mean Corpuscular Hgb Conc 32.5 g/dL (32.0-36.0); Mean Platelet Volume 9.1 fL (9.4-12.4); Monocytes # (auto) 0.41 K/uL (0.11-0.59); Monocytes % (auto) 7.4 %; Neutrophils # (auto) 3.76 K/uL (1.40-6.50); Neutrophils % (auto) 67.8 %; Platelet Count 271 K/uL (130-400); RDW Coefficient of Variation 12.6 % (11.5-14.5); Red Blood Count 3.98 M/uL (4.20-5.40); White Blood Count 5.54 K/ul (4.8-10.8)
--- NOTE | 2024-02-06 08:34 | XRay Report ---
XR chest 1V not portable CLINICAL HISTORY: Chest pain, nonspecific COMPARISON STUDY: No previous studies for comparison. FINDINGS: There is asymmetric decreased volume and increased interstitial thickening within the right lung. There is elevation of the right hemidiaphragm. No consolidation is identified. There is no sho dence for pulmonary edema. Rightward mediastinal shift is noted due to right lung volume loss. IMPRESSION: Asymmetric decreased volume and increased interstitial thickening within the right lung. The findings are nonspecific and correlation with surgical history is recommended. ACT 112: Negative or not required by law. Electronically signed by: Hong Pavon M.D. 02/06/2024 8:33 AM
[2024-02-06 08:47] LABS: ANTI-Xa, UFH(UnfractionatedHep 0.19 IU/ml (0.3-0.7)
[2024-02-06 08:54] LABS: BUN Creatinine Ratio 17.8 (10-20); Calcium 8.9 mg/dl (8.6-10.3); Creatinine Clr Calc Pharmacy 41.9 ml/min; Potassium 4.2 mmol/L (3.5-5.1)
--- NOTE | 2024-02-06 09:41 | Ultrasound Report ---
BILATERAL LOWER EXTREMITY VENOUS DOPPLER CLINICAL HISTORY: Pulmonary emboli. COMPARISON STUDY: No previous studies for comparison. TECHNIQUE: Sonography of the deep venous system of the bilateral lower extremities was performed. Co mpression and augmentation were evaluated. FINDINGS: The bilateral common femoral, superficial femoral and popliteal veins were compressible. A ugmentation was normal. Flow was shown within the deep calf vessels. IMPRESSION: No evidence of deep venous thrombus within the bilateral lower extremities. ACT 112: Negative or not required by law. Electronically signed by: Hong Pavon M.D. 02/06/2024 9:40 AM
--- NOTE | 2024-02-06 09:55 | CT Scan Report ---
CT OF THE HEAD WITHOUT CONTRAST CLINICAL HISTORY: [facility] head trauma COMPARISON STUDY: Head CT and CTA of the head February 05, 2024. CT DOSE: 625.8 mGy.cm TECHNIQUE: Helical axial images of the head were obtained without IV contrast. Automated exposure con trol was utilized for the study. A dose lowering technique was utilized adhering to the principles o f ALARA. FINDINGS: No acute intracranial hemorrhage, midline shift or mass effect is present. The ventricular system is unremarkable. White matter hypodensities are unchanged and favor small vessel disease. The basal cisterns are patent. No extra-axial collections are present. There are no findings to suggest a cute dural sinus thrombosis or acute territorial infarct. No significant calvarial abnormalities are present. Visualized portions of the sinuses and mastoid air cells are clear. IMPRESSION: 1. No acute intracranial findings. 2. No calvarial fractures. ACT 112: Negative or not required by law. Electronically signed by: Hong Pavon M.D. 02/06/2024 9:53 AM
[2024-02-06] MEDS: HEPARIN SOD (PORCINE) 1000 UNIT/ML IV ONE (10:13)
--- NOTE | 2024-02-06 10:58 | Electrocardiogram Report ---
Test Reason : Blood Pressure : */* mmHG Vent. Rate : 101 BPM Atrial Rate : 101 BPM P-R Int : 142 ms QRS Dur : 66 ms QT Int : 342 ms P-R-T Axes : -16 -8 -9 degrees QTcB Int : 443 ms Sinus tachycardia Inferior infarct , age undetermined Abnormal ECG When compared with ECG of 27-Jan-2012 16:42, Inferior infarct is now Present Confirmed by Michael Huitron ([id number]) on 02/06/2024 10:58:41 AM Referred By: Josefa Slaughter Confirmed By: Michael Huitron
--- NOTE | 2024-02-06 12:04 | Hospitalist Progress Note ---
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 She denies headache or LOC or use of blood thinner. Patient was evaluated at outpatient office, noted to be confused and directed to the ED for evaluation. In the ED patient had very high blood pressure with SBP in 200s. History of medication noncompliance Patient stopped most of her medications as per outpatient PCP note from September 2023. History beta-consuelo Rx up until 2022 Pt reports she doesn't take any medications at home currently. Pt encouraged to maintain compliance. 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 Admitting CXR/CT AP/C-spine CT/CT head/CTA head and neck with no acute fracture or acute findings. Admitting XR humerus and repeat CT head with no acute findings. Continue telemetry monitoring, likely Zio patch monitor on discharge. Orthostatic vitals. Hypertensive urgency: Patient noncompliant with home medication, does not take any medications at home. Lisinopril started, blood pressure better. Patient has been encouraged to maintain medication compliance. Acute PE: Admitting CT chest with right lower lobe pulmonary embolus. BLE venous Doppler negative for DVT. Patient gives history of blood clot finding from lung surgery 60 years ago. Patient's son disputes history. Rule out hypercoagulability. f/u hematology on dc. Currently on heparin drip, continue. Troponin negative. Patient with no chest pain or palpitation. Discussed about warfarin/Eliquis/Xarelto, patient would like to go with Eliquis if her insurance supports. Other chronic medical conditions: hyperlipidemia, not on statin Rx anxiety/borderline personality disorder: c/w hydroxyzine prn for anxiety. cognitive impairment, not new as per son. PT OT eval DVT prophylaxis. IV heparin Full code Patient's son Mr. Vick Barajas, contact #[phone]. Text document was generated using [employer] voice recognition software. It may contain grammatical or spelling errors. Kindly contact undersigned for clarification of any documentation item in question. Admission and Anticipated Discharge Date Admission Date: February 05, 2024 Subjective Patient was seen and examined at bedside. Patient was lying in bed, on room air, NAD, resting comfortably. Patient reports no fever/chills/cough/sore throat/chest pain/palpitation. Reports no other new symptoms. Patient denies taking any home medication. Physical Exam Physical Exam: GENERAL: Oriented to year, pleasant, slightly anxious, looks younger than stated age, no respiratory distress SKIN: Normal color, warm HEENT: [place] palpebral conjunctivae, no ptosis, moist buccal mucosa NECK : Supple, no tenderness CHEST : CTA, no tenderness HEART : RRR, no obvious murmurs ABDOMEN: no distention, nontender EXTREMITIES : No LE swelling/tenderness, no other conspicuous deformities noted NEUROLOGIC : Oriented to year, no facial asymmetry, gait and stance not assessed Results & Data Results & Data Vital Signs (Past 12 Hours) Vital Signs Temp Pulse Pulse Resp BP BP Pulse Ox 02/06/24 11:27 02/06/24 07:38 36.8 C 94 H 18 138/73 96 02/06/24 07:33 99 H 02/06/24 04:37 36.9 C 102 H 18 121/70 97 02/06/24 03:16 97 H 02/06/24 02:40 02/06/24 01:54 36.5 C 87 18 156/75 H 98 02/06/24 00:50 36.5 C 87 18 156/75 H 98 02/06/24 00:00 88 18 130/97 98 O2 Del Method 02/06/24 11:27 Room Air 02/06/24 07:38 Room Air 02/06/24 07:33 02/06/24 04:37 Room Air 02/06/24 03:16 02/06/24 02:40 Room Air 02/06/24 01:54 Room Air 02/06/24 00:50 Room Air 02/06/24 00:00
[2024-02-06 17:14] LABS: ANTI-Xa, UFH(UnfractionatedHep 0.43 IU/ml (0.3-0.7)
[2024-02-06] MEDS: lisinopril 2.5 MG TAB PO SCH (20:32)
[2024-02-07 03:45] VITALS: TEMP 98.1
[2024-02-07 05:45] LABS: Hematocrit (blood only) 35.8 % (37.0-47.0); Hemoglobin 11.7 g/dl (12.0-16.0); Mean Corpuscular Hgb Conc 32.7 g/dL (32.0-36.0); Platelet Count 249 K/uL (130-400); RDW Coefficient of Variation 12.6 % (11.5-14.5); RDW Standard Deviation 43.8 fL (36.4-46.3); Red Blood Count 3.77 M/uL (4.20-5.40); White Blood Count 4.82 K/ul (4.8-10.8)
[2024-02-07 05:55] LABS: BUN Creatinine Ratio 22.8 (10-20); Calcium 8.9 mg/dl (8.6-10.3); Creatinine Clr Calc Pharmacy 33.3 ml/min; Magnesium 2.2 mg/dl (1.7-2.4)
[2024-02-07 06:02] LABS: ANTI-Xa, UFH(UnfractionatedHep 0.39 IU/ml (0.3-0.7)
[2024-02-07 07:13] VITALS: RESP 18
[2024-02-07] MEDS: APIXABAN 5 MG TABLET PO SCH (10:02)
[2024-02-07] MEDS: DICLOFENAC SOD 1% GEL 100 GM TUBE EXT PRN (11:18)
[2024-02-07 11:30] VITALS: BP 130/75; O2SAT 97
--- NOTE | 2024-02-07 14:01 | Discharge Summary ---
Date of Service February 07, 2024 Admission HPI Per Admitting Provider History obtained from patient, family, and records. Medical history significant for hypertension, hyperlipidemia, GERD, anxiety/mood disorder, borderline personality disorder Patient not feeling well the last few days. Dizziness described as lightheadedness. Patient stumbled from imbalance the other day causing her to hit her head against a door. Mild right-sided chest pain without SOB symptoms. Patient felt like she was going to pass out. Denies cough symptoms. No leg swelling. Patient somewhat confused as per outpatient provider notes. Patient directed to ER for evaluation. Highest SBP of 200s documented at the ER. IV hydralazine administered at the ER. 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 Admission Exam Per Admitting Provider GENERAL: Oriented to year, pleasant, slightly anxious, looks younger than stated age, no respiratory distress SKIN: Normal color, warm HEENT: [place] palpebral conjunctivae, no ptosis, dry buccal mucosa NECK : Supple, no tenderness CHEST : CTA, no tenderness HEART : RRR, no obvious murmurs ABDOMEN: no distention, nontender EXTREMITIES : No LE swelling/tenderness, no other conspicuous deformities noted NEUROLOGIC : Oriented to year, no facial asymmetry, gait and stance not assessed Principal Diagnosis Medication noncompliance Fall Hypertensive urgency Acute PE Discharge Exam GENERAL: Oriented to year, pleasant, looks younger than stated age, no respiratory distress SKIN: Normal color, warm HEENT: [place] palpebral conjunctivae, no ptosis, moist buccal mucosa NECK : Supple, no tenderness CHEST : CTA, no tenderness HEART : RRR, no obvious murmurs ABDOMEN: no distention, nontender EXTREMITIES : No LE swelling/tenderness, no other conspicuous deformities noted NEUROLOGIC : Oriented to year, no facial asymmetry, gait and stance not assessed Discharge Data Allergies Allergy/AdvReac Type Severity Reaction Status Date / Time procaine Allergy Unknown . Verified 02/05/24 23:43 Consultations 02/05/24 23:45 ED Decision to Admit Stat Ordered Studies 02/05/24 21:40 CT abd pelvis IV con only Stat CT cervical spine wo con Stat CT chest diagnostic w con Stat CT head/brain wo con Stat CTA head w con [CT angio head w con] Stat CTA neck with con [CT angio neck with con] Stat 02/06/24 00:28 US venous doppler LE BI Routine 02/06/24 10:00 CT head/brain wo con Urgent Hospital Course (1) Hypertensive crisis: 83-year-old lady with PMH of HTN, HLD, GERD, anxiety/mood disorder, borderline personality disorder, medical noncompliance presented to the ED 02/04 with complaint of not feeling well for the last few days [employer]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 She denies headache or LOC or use of blood thinner. Patient was evaluated at outpatient office, noted to be confused and directed to the ED for evaluation. In the ED patient had very high blood pressure with SBP in 200s. She was managed for the following: History of medication noncompliance Patient stopped most of her medications as per outpatient PCP note from September 2023. History beta-consuelo Rx up until 2022 Pt reports she doesn't take any medications at home currently. Pt encouraged to maintain compliance. 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 Admitting CXR/CT AP/C-spine CT/CT head/CTA head and neck with no acute fracture or acute findings. Admitting XR humerus and repeat CT head with no acute findings. Continue telemetry monitoring, likely Zio patch monitor on discharge. PT evaled, recs home. Hypertensive urgency: Patient noncompliant with home medication, does not take any medications at home. Lisinopril started, blood pressure better. Patient has been encouraged to maintain medication compliance. Acute PE: Admitting CT chest with right lower lobe pulmonary embolus. BLE venous Doppler negative for DVT. Patient gives history of blood clot finding from lung surgery 60 years ago. Patient's son disputes history. Rule out hypercoagulability. f/u hematology on dc. hep drip dc'd, transitioned to eliquis. pt agreeable to eliquis cost of about 12 dollars a month. Other chronic medical conditions: hyperlipidemia, not on statin Rx anxiety/borderline personality disorder: c/w hydroxyzine prn for anxiety. cognitive impairment, not new as per son. PT OT eval DVT prophylaxis. IV heparin Full code Patient's son Mr. Vick Barajas, contact #[phone]. Updated and went over dc instructions over the phone on 02/07/24. Patient is being discharged to home with family support with following instruction at the point of discharge: Follow-up with your primary care physician within a week time and likely you will need labs CBC/CMP/magnesium/phosphorus. Please maintain medication compliance and follow-up with your PCP. For your hypertension, you have been started on lisinopril, measure your blood pressure twice a day to maintain a log to take to your primary care physician for ongoing evaluation/adjustment of your blood pressure medication. For your blood clot in the lung, you have been started on Eliquis. You will take 10 mg of Eliquis twice a day for 7 days starting 10/6 AM, then you will take 5 mg of Eliquis twice a day thereafter. Follow-up with hematology in about 4 weeks time upon discharge, coordinate with the PCP office to set up the referral. You will benefit from Zio patch monitoring as an outpatient, coordinate with your PCP office to set up the test. Take your medications as prescribed Please make sure that you are able to get your medications today by calling your pharmacy before you leave the hospital so that your treatment continuity is not broken. Text document was generated using [employer] voice recognition software. It may contain grammatical or spelling errors. Kindly contact undersigned for clarification of any documentation item in question. Home Health Attestation I certify that this patient is under my care and that I, or a physicians plumber assistant working with me, had a face to-face encounter that meets the home health [id number] encounter requirements with this patient. The encounter with the patient was in whole, or in part, for the following medical condition, which is the primary reason for home health care (list medical condition): I certify that, based on my findings, the following services are medically necessary home health services: My clinical findings support the need for the above services because: Further, I certify that my clinical findings support that this patient is homebound (i.e. absences from home require considerable and taxing effort and are for medical reasons or alevism services or infrequently or of short duration when for other reasons) because: Certification for Home Health Services: Based on the above findings, I certify that this patient is confined to the home and needs intermittent custodial care, physical therapy and/or speech therapy or continues to need occupational therapy. The patient is under my care, and I have initiated the establishment of the plan of care. This patient will be followed by a physician who will periodically review the plan of care. Total Time Total Time Spent Total Time Spent (In Minutes): 45 Discharge Plan Discharge Items Patient Disposition: Home - Self-Care Reason For Visit: HTN CRISIS, PE Discharge Diagnosis: Medication noncompliance Fall Hypertensive urgency Acute PE Condition on Discharge: Good Activity: Resume your previous activity Non-emergency contact: Primary Care Provider Call non-emergency contact if: you have any medication questions and your symptoms worsen Follow-up/Referrals: Molly Castelan PA-C [Primary Care Provider] - Diet: Heart Healthy Addtl Attending Provider Instructions: Follow-up with your primary care physician within a week time and likely you will need labs CBC/CMP/magnesium/phosphorus. Please maintain medication compliance and follow-up with your PCP. For your hypertension, you have been started on lisinopril, measure your blood pressure twice a day to maintain a log to take to your primary care physician for ongoing evaluation/adjustment of your blood pressure medication. For your blood clot in the lung, you have been started on Eliquis. You will take 10 mg of Eliquis twice a day for 7 days starting 10/6 AM, then you will take 5 mg of Eliquis twice a day thereafter. Follow-up with hematology in about 4 weeks time upon discharge, coordinate with the PCP office to set up the referral. You will benefit from Zio patch monitoring as an outpatient, coordinate with your PCP office to set up the test. Take your medications as prescribed Please make sure that you are able to get your medications today by calling your pharmacy before you leave the hospital so that your treatment continuity is not broken. Pending Studies at Discharge: Yes Stand-Alone Forms: My [employer] [place], Smoking Cessation Medications and DC Order Prescriptions: New Eliquis 5 mg tablet 5 mg PO BID Qty: 74 0RF lisinopril 2.5 mg Tablet 2.5 mg PO HS Qty: 30 0RF Continued escitalopram oxalate 5 mg tablet 5 mg PO DAILY Discharge Orders: Discharge Order (Routine); Ordered 02/07/24 Ordered By: Sinan Pedroza Admission Data Admit Date/Time: 02/05/24 23:54 Attending Provider: Sinan Pedroza Admit Provider: Pradeep Barbosa Primary Care Provider: Molly Castelan Other Providers: Pradeep Barbosa
[2024-02-07 14:03] VITALS: PULSE 80
== END 2024-02-07 15:04 | disposition home or self-care (01) | DRG 304 ==
LOC: ED 17:48 → 2S 23:54